=== PATIENT | male | born 1950 | race Caucasian/White ===

== ENCOUNTER 2016-10-19 09:51 | Inpatient (IN) | payer BC ==
[~2016-10-19] VITALS: Ht 177.8 cm; Wt 113.2 kg
[2016-10-19] VITALS (10 sets, daily range): BP systolic 123–149; BP diastolic 77–93
[2016-10-19] MEDS ORDERED: 0.9 % SODIUM CHLORIDE 10 ML DISP.SYRIN. IV PRN (10:00)
--- NOTE | 2016-10-19 10:06 | EKG ---
[facility] [address] [place] [address] Test Date: 2016-10-19 Test Time: 09:52:40 Pat Name: JED KINGSLEY Department: Room: Gender: M Traffic Representative: : 1950 Requested By: RAMIRO HANKS Order Number: [id number] Reading MD: Billy Fried Measurements Intervals [place] Rate: 77 P: 90 AR: 152 QRS: 14 QRSD: 100 T: -20 QT: 386 QTc: 439 Interpretive Statements SINUS RHYTHM ATRIAL PREMATURE COMPLEX(ES) R-S TRANSITION ZONE IN V LEADS DISPLACED TO THE RIGHT INCOMPLETE RIGHT BUNDLE BRANCH BLOCK QRS(T) CONTOUR ABNORMALITY CONSIDER ANTEROLATERAL MYOCARDIAL DAMAGE ST & T ABNORMALITY, CONSIDER INFERIOR ISCHEMIA OR LEFT VENTRICULAR STRAIN RI6.01 Unconfirmed report No previous ECG available for comparison Electronically Signed On 10-19-2016 11:10:21 CDT by Billy Fried
[2016-10-19] MEDS ORDERED: IV NORMAL SALINE 1000ML BAG 1,000 ML IV SCH ×2 (10:15→11:30)
[2016-10-19 10:18] LABS: BASO # 0.1 x10^3/uL (0.0-0.2); BASO % 1 % (0-3); EOS % 2 % (0-3); HEMATOCRIT 48.4 % (39.0-53.0); LYMPH # 2.7 x10^3/uL (1.0-4.8); LYMPH % 29 % (24-48); MEAN CORPUSCULAR HEMOGLOBIN 29 pg (25-35); MEAN CORPUSCULAR HGB CONC 35 g/dL (31-37); MEAN CORPUSCULAR VOLUME 83 fL (79-100); MONO % 7 % (0-9); NEUT % 61 % (31-73); PLATELET COUNT 179 x10^3/uL (140-400); RED BLOOD COUNT 5.85 x10^6/uL (4.30-5.70); RED CELL DISTRIBUTION WIDTH 14.9 % (11.5-14.5); WHITE BLOOD COUNT 9.2 x10^3/uL (4.0-11.0)
[2016-10-19] MEDS: fentaNYL PF VIAL 100 MCG/2 ML VIAL IV PRN ×2 (10:18→10:57)
--- NOTE | 2016-10-19 10:27 | PHYS DOC ---
Past Medical History Past Medical History: CAD, High Cholesterol, Heart Disease, Hypertension Past Surgical History: Other Additional Past Surgical Histo: 6 cardiac stents. Alcohol Use: None Drug Use: None Adult General Chief Complaint Chief Complaint: CHEST PAIN-CARDIAC NATURE HPI HPI Is a pleasant 65-year-old male with history of hypertension, hyperlipidemia and heart disease that required the placement of 6 cardiac stents. He is actually an acute cardiac event when a stent became occluded acutely after became exposed. Patient has been under the care of Dr. Bryan Calle over the [facility] for his cardiac disease since 2005. Today he was out in the yard exerting himself distributing mulch in the yard when he began having chest pain center versus chest described as pressure and squeezing and made him very lightheaded dizzy and diaphoretic. Chest pain is about a 9 of 10 with exertion became less with rest. The really dispensed EMS to the scene found the patient diaphoretic complaining of 7 of 10 chest pain on scene they provided him 324 mg of by mouth aspirin and 2 sublingual nitros and 4 mg of morphine. He felt markedly better on the route at arrival chest pain about 3-4- 10 the diaphoresis and completely resolved. Patient admits to being very anxious. Short of breath with chest pain that does not radiate to his neck or back or shoulder like his prior events. He denies any change in medications, denies any recent travel outside the [place], denies any history of DVT lower extremity swelling or pain. Patient denies any recent URI symptoms cough or any nose congestion or other complaints. He is presently only mildly nauseous. He denies any back pain, headache, tingling or numbness in the visit extremities problems speaking or other concerns. Chest pain was increased with exertion better with rest. Differential diagnosis for chest pain: Pericarditis, myocarditis, endocarditis, pneumothorax, pneumonia, aortic dissection, esophageal spasm, esophagitis, peptic ulcer disease, acute coronary syndrome, mediastinitis, Boerhaave syndrome , musculoskeletal chest wall pain, costochondritis, intercostal strain, rib fracture, pulmonary contusion, pneumonitis, pleural effusion, pericardial effusion, pericardial tamponode, and pleurisy be considered upon this admission. We will complete EKG, CBC, chest x-ray, appropriate lab work to include magnesium level lipase level cardiac enzymes and appropriate admission to the hospital for high risk chest pain. History: Highly suspicious 2 points moderately suspicious 1. slightly suspicious 0 point EKG: ST segment depression 2. nonspecific repolarization disturbance 1. normal 0 point Age: Greater than 65 2 points, 65-45 1., less than 45 years old 0 points Risk factors:> 3 risk factors 2 points, 1-2 risk factors one point, no risk factors 0 point Troponin: > 2 times normal 2 points, 1-2 times normal 1., normal limits 0 point Total score: Score % pts MACE/n MACE Policy 0-3 32% 1.9% 0.05% Discharge 4-6 51% 413/3136 13% 1.3% Observation Risk management 7-10 17% 518/1045 50% 2.8% Observation Treatment, CAG Patient presently has a heart score for without him having a troponin returned. Noel Paz his PCP Dr. Bryan Calle is his primary french polisher. Review of Systems Review of Systems Constitutional: Denies fever or chills [] Eyes: Denies change in visual acuity, redness, or eye pain [] HENT: Denies nasal congestion or sore throat [] Respiratory: He did complain of shortness of breath and chest tightness upon arrival. Cardiovascular: No additional information not addressed in HPI [] GI: Denies abdominal pain no vomiting or diarrhea but does complain of nausea. : Denies dysuria or hematuria [] Musculoskeletal: Denies back pain or joint pain [] Integument: Denies rash or skin lesions [] Neurologic: Denies headache, focal weakness or sensory changes he did complain of feeling generally lightheaded and weak. Endocrine: Denies polyuria or polydipsia [] Current Medications Current Medications Current Medications Medications (Trade) Dose Ordered Sig/Miguel Start Time Stop Time Status Last Admin Dose Admin Fentanyl Citrate (Fentanyl 2ml Vial) 25 mcg PRN Q15MIN PRN 10/19/16 10:00 10/20/16 09:59 10/19/16 10:57 25 MCG Lorazepam (Ativan) 1 mg 1X ONCE 10/19/16 10:15 10/19/16 10:16 DC 10/19/16 10:18 1 MG Sodium Chloride (Normal Saline Flush) 10 ml QSHIFT PRN 10/19/16 10:00 Allergies Allergies Allergies Coded Allergies Type Severity Reaction Last Updated Verified Penicillins Allergy Intermediate 10/19/16 Yes Physical Exam Physical Exam Mildly obese diaphoretic male pale but appropriately responsive. Vital signs evaluated and noted to be hypertensive. Not hypoxic tachypnea or febrile. Constitutional: Well developed, well nourished, no acute distress, non-toxic appearance. [] HENT: Normocephalic, atraumatic, bilateral external ears normal, dry mucous membranes no oral exudates, nose normal. [] Eyes: PERRLA, EOMI, conjunctiva normal, no discharge. [] Neck: Normal range of motion, no tenderness, supple, no stridor. [] Cardiovascular:Heart rate regular rhythm, no murmur [] Lungs & Thorax: Bilateral breath sounds clear to auscultation [] Abdomen: Bowel sounds normal, soft, no tenderness, no masses, no pulsatile masses. [] Skin: Warm, very diaphoretic no erythema, no rash. [] Back: No tenderness, no CVA tenderness. [] Extremities: No tenderness, no cyanosis, no clubbing, ROM intact, no edema. [] Neurologic: Alert and oriented X 3, normal motor function, normal sensory function, no focal deficits noted. [] Psychologic: Patient very anxious but appropriately oriented. Current Patient Data Vital Signs Vital Signs Date Time Temp Pulse Resp B/P (MAP) Pulse Ox O2 Delivery O2 Flow Rate FiO2 10/19/16 10:57 18 10/19/16 10:53 64 166/91 (116) 99 Room Air 10/19/16 09:53 97.5 97.5 Lab Values Laboratory Tests Test 10/19/16 10:03 10/19/16 10:22 White Blood Count 9.2 x10^3/uL (4.0-11.0) Red Blood Count 5.85 x10^6/uL (4.30-5.70) H Hemoglobin 17.0 g/dL (13.0-17.5) Hematocrit 48.4 % (39.0-53.0) Mean Corpuscular Volume 83 fL (79-100) Mean Corpuscular Hemoglobin 29 pg (25-35) Mean Corpuscular Hemoglobin Concent 35 g/dL (31-37) Red Cell Distribution Width 14.9 % (11.5-14.5) H Platelet Count 179 x10^3/uL (140-400) Neutrophils (%) (Auto) 61 % (31-73) Lymphocytes (%) (Auto) 29 % (24-48) Monocytes (%) (Auto) 7 % (0-9) Eosinophils (%) (Auto) 2 % (0-3) Basophils (%) (Auto) 1 % (0-3) Neutrophils # (Auto) 5.6 x10^3uL (1.8-7.7) Lymphocytes # (Auto) 2.7 x10^3/uL (1.0-4.8) Monocytes # (Auto) 0.7 x10^3/uL (0.0-1.1) Eosinophils # (Auto) 0.2 x10^3/uL (0.0-0.7) Basophils # (Auto) 0.1 x10^3/uL (0.0-0.2) Sodium Level 141 mmol/L (136-145) Potassium Level 3.6 mmol/L (3.5-5.1) Chloride Level 107 mmol/L (98-107) Carbon Dioxide Level 25 mmol/L (21-32) Anion Gap 9 (6-14) Blood Urea Nitrogen 30 mg/dL (8-26) H Creatinine 1.2 mg/dL (0.7-1.3) Estimated GFR (Cockcroft-Gault) 61.0 Glucose Level 134 mg/dL (70-99) H Calcium Level 9.9 mg/dL (8.5-10.1) Magnesium Level 1.8 mg/dL (1.8-2.4) Creatine Kinase 92 U/L (39-308) Creatine Kinase MB (Mass) 2.0 ng/mL (0.0-3.6) Creatine Kinase MB Relative Index 2.2 % (0-4) Troponin I Quantitative < 0.017 ng/mL (0.000-0.055) EH-Sim-I-Type Natriuretic Peptide 71 pg/mL (0-124) Lipase 242 U/L (73-393) Thyroid Stimulating Hormone (TSH) 2.271 uIU/mL (0.358-3.74) POC Troponin I 0.01 ng/ml (<0.08) Laboratory Tests 10/19/16 10:03 Laboratory Tests 10/19/16 10:03 EKG EKG EKG timed 0 952 10/19/2016 demonstrates sinus rhythm heart rate of 77 there are occasional premature atrial contractions there is a right bundle-branch block is intermediate widened QRS at 100 ms. There is an old Q-wave in the anterior leads of V1. There is also a Q-wave with necessary depressions in lead 3 and aVF. There are clearly no signs of ST segment elevation consistent with an MA but given his history we will repeat his EKG and he is pain-free. Dr. Hanks is the reading physician [] Radiology/Procedures Radiology/Procedures [] [address] [place] [address] IMAGING REPORT Signed PATIENT: JED KINGSLEY ACCOUNT: [id number] : 1950 LOCATION: ER AGE: 65 SEX: M EXAM STATUS: PRE ER ORD. PHYSICIAN: RAMIRO HANKS MD REASON: chest pain PROCEDURE: PORTABLE CHEST 1V Indication acute chest pain. A single view of the chest was obtained. No prior imaging is available. Heart size is at the upper limits of normal. There is no congestive heart failure. A focal infiltrate is not seen in either lung. Significant pleural fluid is not present. There is no pneumothorax. The visualized bony structures appear grossly intact. IMPRESSION: No acute or focal process is seen in the chest DICTATED and SIGNED BY: SON RYAN MD DATE: 10/19/16 1031 CC: RAMIRO HANKS MD ~ Course & Med Decision Making Course & Med Decision Making Pertinent Labs and Imaging studies reviewed. (See chart for details) patient presented with chest pain of unclear etiology but given his history and possible heart score of being moderateDifferential diagnosis for chest pain: Pericarditis, myocarditis, endocarditis, pneumothorax, pneumonia, aortic dissection, esophageal spasm, esophagitis, peptic ulcer disease, acute coronary syndrome, mediastinitis, Boerhaave syndrome, musculoskeletal chest wall pain, costochondritis, intercostal strain, rib fracture, pulmonary contusion, pneumonitis, pleural effusion, pericardial effusion, pericardial tamponode, and pleurisy. Was considered initially upon presentation. Patient's initial troponin by i-STAT was 0.01 and troponin by laboratory work was 0.017 EKGs did not demonstrate any acute coronary heart attack that there was some nonseptic sT -wave depression which is concerning for possible ischemia. Patient was given multiple a medications fluids antiemetics and something for anxiety which did improve his chest pain from it 9- to 0. Upon movement chest pain did return briefly after patient was moved in the bed. Repeat EKG as been ordered. []Panel Flow Machine Operator note internal medicine Panel Flow Machine Operator called at of the service patient initially at 11 AM Consult called back at return call at 1102 Discussed the case I presented and they agreed with admission. Time of acceptance 1102. Patient will be admitted to telemetry for repeat troponins given pain medications antiemetics and fluids and cardiology evaluation. I spent approximately 45-50 minutes working and engaged directly in the patient care providing critical care evaluation this includes but not limited to time spent engaged in work directly related to the individual patients care. I spent time at the bedside, reviewing test results, discussing the case with staff, documenting the medical record and time spent with EMS discussing specific treatment issues when the patient presented and during his evaluation. Dragon Disclaimer Dragon Disclaimer This electronic medical record was generated, in whole or in part, using a voice recognition dictation system. Departure Departure Impression: Primary Impression: Chest pain of uncertain etiology Additional Impressions: Chest pain Hypertension Disposition: 09 ADMITTED INPATIENT Admitting Physician: Santana Molina Condition: GUARDED Problem Qualifiers RAMIRO HANKS MD Oct 19, 2016 10:27
[2016-10-19 10:30] LABS: CALCIUM 9.9 mg/dL (8.5-10.1); CREATININE 1.2 mg/dL (0.7-1.3); POTASSIUM 3.6 mmol/L (3.5-5.1)
[2016-10-19 10:31] LABS: MAGNESIUM 1.8 mg/dL (1.8-2.4)
--- NOTE | 2016-10-19 10:34 | RAD ---
Indication acute chest pain. A single view of the chest was obtained. No prior imaging is available. Heart size is at the upper limits of normal. There is no congestive heart failure. A focal infiltrate is not seen in either lung. Significant pleural fluid is not present. There is no pneumothorax. The visualized bony structures appear grossly intact. IMPRESSION: No acute or focal process is seen in the chest
[2016-10-19] MEDS ORDERED: fentaNYL PF VIAL 100 MCG/2 ML VIAL IV PRN (11:15)
[2016-10-19] MEDS ORDERED: NITROGLYCERIN SUBLINGUAL 0.4 MG BOTTLE OF 25. SL PRN (11:15)
[2016-10-19] MEDS ORDERED: ONDANSETRON PF 4 MG/2 ML VIAL. IV PRN ×2 (11:15→14:30)
--- NOTE | 2016-10-19 13:35 | PDOC2 ---
JILLIAN GONSALEZ WATERPROOF BAG CUTTING MACHINE OPERATOR 10/19/16 1335: CARDIAC CONSULT DATE OF CONSULT Date of Consult DATE: 10/19/16 TIME: 13:28 REASON FOR CONSULT Reason for Consult: Chest pain with a h/o heart disease REFERRING PHYSICIAN Referring Physician: Dr. Orr SOURCE Source: Chart review, Patient HISTORY OF PRESENT ILLNESS HISTORY OF PRESENT ILLNESS This is a 65 yo male, with a history of CAD requiring multiple stents on 3 occasions, who presented with complaints of chest pain. Patient reports working out in the yard this morning carry heavy bag of mulch when he experienced sudden onset of central chest pain. Describes as pressure-like. Associated with diaphoresis, nausea, SOA, and left arm tingling. Reports symptoms are similar to what he has previously experienced with GA. No exacerbating factors. Improved with fentanyl. Presently reports pain is a 2/10. Significant history of CAD. In 2004, had evaluation with both stress test and echo, both of which were reportedly normal. Continued to have chest pain so underwent cardiac cath; required two stents. In 2010, having similar-type pain, heart cath repeated and had 5 additional stents. In March of 2015, had recurrent chest pain. Had v- fib arrest and was coded multiple times. 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 Had angioplasty with subsequent stent placement. Follows closely with Dr. Calle of [facility]. Reports intermittent "funny feeling " in his chest and recent LYNN. Underwent stress test and echocardiogram earlier this month. Has appointment next week for results of those studies. Has been compliant with medical therapy. PAST MEDICAL HISTORY Cardiovascular: CAD (s/p stents in 2014), HTN Pulmonary: No pertinent hx GI: No pertinent hx Heme/Onc: No pertinent hx Hepatobiliary: No pertinent hx Psych: No pertinent hx Rheumatologic: No pertinent hx Infectious disease: No pertinent hx ENT: No pertinent hx Renal/: No pertinent hx Endocrine: No pertinent hx Dermatology: No pertinent hx PAST SURGICAL HISTORY Past Surgical History: Other (coronary stents ) FAMILY HISTORY Family History: Coronary Artery Disease (father ), Hypertension SOCIAL HISTORY Smoke: No ALCOHOL: none Drugs: None Lives: with Family CURRENT MEDICATIONS CURRENT MEDICATIONS Current Medications Medications (Trade) Dose Ordered Sig/Miguel Route PRN Reason Start Time Stop Time Status Last Admin Dose Admin Lorazepam (Ativan) 1 mg 1X ONCE IV 10/19/16 10:15 10/19/16 10:16 DC 10/19/16 10:18 Fentanyl Citrate (Fentanyl 2ml Vial) 25 mcg PRN Q15MIN PRN IV PAIN GREATER THAN 3/10 10/19/16 10:00 10/20/16 09:59 10/19/16 10:57 Sodium Chloride 1,000 ml @ 1,000 mls/hr Q1H IV 10/19/16 10:15 10/19/16 11:14 DC 10/19/16 10:19 ALLERGIES ALLERGIES: Coded Allergies: Penicillins (Verified Allergy, Intermediate, 10/19/16) ROS Review of System 14 point ROS conducted with pertinent positives noted above in HPI. PHYSICAL EXAM General: Alert, Oriented X3, Cooperative, No acute distress HEENT: Mucous membr. moist/pink Lungs: Clear to auscultation, Normal air movement Heart: Regular rate, Normal S1, Normal S2 Abdomen: Soft, No tenderness Extremities: No edema, Normal pulses Skin: No breakdown, No significant lesion Neuro: Normal speech, Sensation intact Psych/Mental Status: Mental status NL, Mood NL VITALS VITALS Vital Signs Date Time Temp Pulse Resp B/P (MAP) Pulse Ox O2 Delivery O2 Flow Rate FiO2 10/19/16 12:15 97.5 70 18 123/87 (99) 97 Room Air 97.5 LABS Lab: Laboratory Tests Test 10/19/16 10:03 10/19/16 10:22 White Blood Count 9.2 x10^3/uL (4.0-11.0) Red Blood Count 5.85 x10^6/uL (4.30-5.70) Hemoglobin 17.0 g/dL (13.0-17.5) Hematocrit 48.4 % (39.0-53.0) Mean Corpuscular Volume 83 fL (79-100) Mean Corpuscular Hemoglobin 29 pg (25-35) Mean Corpuscular Hemoglobin Concent 35 g/dL (31-37) Red Cell Distribution Width 14.9 % (11.5-14.5) Platelet Count 179 x10^3/uL (140-400) Neutrophils (%) (Auto) 61 % (31-73) Lymphocytes (%) (Auto) 29 % (24-48) Monocytes (%) (Auto) 7 % (0-9) Eosinophils (%) (Auto) 2 % (0-3) Basophils (%) (Auto) 1 % (0-3) Neutrophils # (Auto) 5.6 x10^3uL (1.8-7.7) Lymphocytes # (Auto) 2.7 x10^3/uL (1.0-4.8) Monocytes # (Auto) 0.7 x10^3/uL (0.0-1.1) Eosinophils # (Auto) 0.2 x10^3/uL (0.0-0.7) Basophils # (Auto) 0.1 x10^3/uL (0.0-0.2) Sodium Level 141 mmol/L (136-145) Potassium Level 3.6 mmol/L (3.5-5.1) Chloride Level 107 mmol/L (98-107) Carbon Dioxide Level 25 mmol/L (21-32) Anion Gap 9 (6-14) Blood Urea Nitrogen 30 mg/dL (8-26) Creatinine 1.2 mg/dL (0.7-1.3) Estimated GFR (Cockcroft-Gault) 61.0 Glucose Level 134 mg/dL (70-99) Calcium Level 9.9 mg/dL (8.5-10.1) Magnesium Level 1.8 mg/dL (1.8-2.4) Creatine Kinase 92 U/L (39-308) Creatine Kinase MB (Mass) 2.0 ng/mL (0.0-3.6) Creatine Kinase MB Relative Index 2.2 % (0-4) Troponin I Quantitative < 0.017 ng/mL (0.000-0.055) NN-Jph-X-Type Natriuretic Peptide 71 pg/mL (0-124) Lipase 242 U/L (73-393) Thyroid Stimulating Hormone (TSH) 2.271 uIU/mL (0.358-3.74) Bedside Troponin I 0.01 ng/ml (<0.08) ASSESSMENT/PLAN ASSESSMENT/PLAN 1. Chest Pain with typical features 2. CAD with multiple previous coronary stents 3. Hypertension Recommendations Obtain cardiac records from [facility] Keep NPO for now. Trend CE. Check lipids. ASA administered in ED Given anginal symptoms and significant cardiac history and risk factors, recommend cardiac cath for further evaluation. 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 R/b/a discussed with patient and and are agreeable. Consider nitro gtt if CP returns Problems: HANNAH ARAUJO MD 10/19/16 1501: CARDIAC CONSULT ALLERGIES ALLERGIES: Coded Allergies: Penicillins (Verified Allergy, Intermediate, 10/19/16) ASSESSMENT/PLAN ASSESSMENT/PLAN Patient seen and examined. Agree with above nurse practitioner note. 65-year-old male with multiple prior coronary stents presenting with features of chest pain concerning for unstable angina. Normal cardiac exam. EKG is unremarkable. Labs do not reveal any acute ischemia. Pain control at this time and consider initiation of heparin drip and expedited catheterization the next 12-24 hours, sooner if symptoms and labs necessitate. Problems: JILLIAN GONSALEZ APRN Oct 19, 2016 13:35 HANNAH ARAUJO MD Oct 19, 2016 15:01
[2016-10-19] MEDS ORDERED: ASPI-482 PO (14:28)
[2016-10-19] MEDS ORDERED: DOXA4TAB3 PO (14:28)
[2016-10-19] MEDS ORDERED: CLOP75TA PO (14:28)
[2016-10-19] MEDS ORDERED: MULT-208 PO (14:28)
[2016-10-19] MEDS ORDERED: hydrALAZINE 20 MG/ML VIAL. IVP PRN (14:30)
[2016-10-19] MEDS ORDERED: DOCUSATE SODIUM 100 MG CAPSULE. PO PRN (14:30)
[2016-10-19] MEDS ORDERED: ACETAMINOPHEN 325 MG TABLET. PO PRN (14:30)
[2016-10-19] MEDS ORDERED: MORPHINE SULFATE 2 MG/ML DISP.SYRIN. IV PRN (14:30)
[2016-10-19] MEDS ORDERED: traMADol 50 MG TABLET PO PRN (14:30)
--- NOTE | 2016-10-19 14:37 | PDOC1 ---
History and Physical Date of Admission Date of Admission 10/19/16 Identification/Chief Complaint Chief Complaint CHEST pain Problems: Source Source: Chart review, Patient History of Present Illness History of Present Illness 65yo M, with h/o CAD post PCI , 5-6 stents, last time [place] was 2014, was sent by EMS for chest pain. He said he saw his own card 2 weeks ago , did MPI neg. He was doing ok since last week, feels mild chest uncomfortable, but severe chest pain today when ambulate up and down the hill of the yard mowing, pressure like, substernal, no radiation. He also had diaphoresis, nausea, sob with the chest pain. He took ASA, nitro which helped. and fentanyl iv in ER helped the pain. Still feel mild chest pressure pain. denies recent fever, chills, sob, cough , N/V. compliant with meds. Past Medical History Cardiovascular: CAD (s/p stents in 2014), HTN Past Surgical History Past Surgical History: No pertinent history Family History Family History: Heart Disease Social History Smoke: No ALCOHOL: none Drugs: None Current Problem List Problem List Problems Medical Problems: (1) Chest pain Status: Acute (2) Chest pain of uncertain etiology Status: Acute (3) Hypertension Status: Acute Current Medications Current Medications Current Medications Medications (Trade) Dose Ordered Sig/Miguel Start Time Stop Time Status Last Admin Dose Admin Fentanyl Citrate (Fentanyl 2ml Vial) 50 mcg PRN Q1HR PRN 10/19/16 11:15 10/20/16 11:14 Lorazepam (Ativan) 1 mg 1X ONCE 10/19/16 10:15 10/19/16 10:16 DC 10/19/16 10:18 1 MG Nitroglycerin (Nitrostat) 0.4 mg PRN Q5MIN PRN 10/19/16 11:15 10/20/16 11:14 Ondansetron HCl (Zofran) 4 mg PRN Q8HRS PRN 10/19/16 11:15 10/20/16 11:14 Sodium Chloride 1,000 ml @ 100 mls/hr Q10H 10/19/16 11:30 10/20/16 11:29 Sodium Chloride (Normal Saline Flush) 10 ml QSHIFT PRN 10/19/16 10:00 Allergies Allergies Allergies Coded Allergies Type Severity Reaction Last Updated Verified Penicillins Allergy Intermediate 10/19/16 Yes ROS Review of System CONSTITUTIONAL: No fever or chills EYES: No recent changes SKIN: No rash or itching CARDIOVASCULAR: No chest pain, syncope, palpitations, or edema RESPIRATORY: No SOB or cough GASTROINTESTINAL: No nausea, vomiting or abdominal pain NEUROLOGICAL: No headaches or weakness ENDOCRINE: No cold or heat intolerance GENITOURINARY: No urgency or frequency of urination MUSCULOSKELETAL: No back pain or joint pain LYMPHATICS: No enlarged lymph nodes PSYCHIATRIC: No anxiety or depression Physical Exam Physical Exam GEN.: No apparent distress. Alert and oriented. HEENT: Head is normocephalic, atraumatic NECK: Supple. LUNGS: Clear to auscultation. HEART: RRR, S1, S2 present. Peripheral pulses intact ABDOMEN: Soft, nontender. Positive bowel sounds. EXTREMITIES: Without any cyanosis. NEUROLOGIC: Normal speech, normal tone PSYCHIATRIC: Normal affect, normal mood. SKIN: No ulcerations Vitals Vitals Vital Signs Date Time Temp Pulse Resp B/P (MAP) Pulse Ox O2 Delivery O2 Flow Rate FiO2 10/19/16 12:15 97.5 70 18 123/87 (99) 97 Room Air 97.5 Labs Labs Laboratory Tests Test 10/19/16 10:03 10/19/16 10:22 White Blood Count 9.2 x10^3/uL (4.0-11.0) Red Blood Count 5.85 x10^6/uL (4.30-5.70) Hemoglobin 17.0 g/dL (13.0-17.5) Hematocrit 48.4 % (39.0-53.0) Mean Corpuscular Volume 83 fL (79-100) Mean Corpuscular Hemoglobin 29 pg (25-35) Mean Corpuscular Hemoglobin Concent 35 g/dL (31-37) Red Cell Distribution Width 14.9 % (11.5-14.5) Platelet Count 179 x10^3/uL (140-400) Neutrophils (%) (Auto) 61 % (31-73) Lymphocytes (%) (Auto) 29 % (24-48) Monocytes (%) (Auto) 7 % (0-9) Eosinophils (%) (Auto) 2 % (0-3) Basophils (%) (Auto) 1 % (0-3) Neutrophils # (Auto) 5.6 x10^3uL (1.8-7.7) Lymphocytes # (Auto) 2.7 x10^3/uL (1.0-4.8) Monocytes # (Auto) 0.7 x10^3/uL (0.0-1.1) Eosinophils # (Auto) 0.2 x10^3/uL (0.0-0.7) Basophils # (Auto) 0.1 x10^3/uL (0.0-0.2) Sodium Level 141 mmol/L (136-145) Potassium Level 3.6 mmol/L (3.5-5.1) Chloride Level 107 mmol/L (98-107) Carbon Dioxide Level 25 mmol/L (21-32) Anion Gap 9 (6-14) Blood Urea Nitrogen 30 mg/dL (8-26) Creatinine 1.2 mg/dL (0.7-1.3) Estimated GFR (Cockcroft-Gault) 61.0 Glucose Level 134 mg/dL (70-99) Calcium Level 9.9 mg/dL (8.5-10.1) Magnesium Level 1.8 mg/dL (1.8-2.4) Creatine Kinase 92 U/L (39-308) Creatine Kinase MB (Mass) 2.0 ng/mL (0.0-3.6) Creatine Kinase MB Relative Index 2.2 % (0-4) Troponin I Quantitative < 0.017 ng/mL (0.000-0.055) IK-Hux-J-Type Natriuretic Peptide 71 pg/mL (0-124) Lipase 242 U/L (73-393) Thyroid Stimulating Hormone (TSH) 2.271 uIU/mL (0.358-3.74) Bedside Troponin I 0.01 ng/ml (<0.08) Laboratory Tests Test 10/19/16 10:03 10/19/16 10:22 White Blood Count 9.2 x10^3/uL (4.0-11.0) Red Blood Count 5.85 x10^6/uL (4.30-5.70) Hemoglobin 17.0 g/dL (13.0-17.5) Hematocrit 48.4 % (39.0-53.0) Mean Corpuscular Volume 83 fL (79-100) Mean Corpuscular Hemoglobin 29 pg (25-35) Mean Corpuscular Hemoglobin Concent 35 g/dL (31-37) Red Cell Distribution Width 14.9 % (11.5-14.5) Platelet Count 179 x10^3/uL (140-400) Neutrophils (%) (Auto) 61 % (31-73) Lymphocytes (%) (Auto) 29 % (24-48) Monocytes (%) (Auto) 7 % (0-9) Eosinophils (%) (Auto) 2 % (0-3) Basophils (%) (Auto) 1 % (0-3) Neutrophils # (Auto) 5.6 x10^3uL (1.8-7.7) Lymphocytes # (Auto) 2.7 x10^3/uL (1.0-4.8) Monocytes # (Auto) 0.7 x10^3/uL (0.0-1.1) Eosinophils # (Auto) 0.2 x10^3/uL (0.0-0.7) Basophils # (Auto) 0.1 x10^3/uL (0.0-0.2) Sodium Level 141 mmol/L (136-145) Potassium Level 3.6 mmol/L (3.5-5.1) Chloride Level 107 mmol/L (98-107) Carbon Dioxide Level 25 mmol/L (21-32) Anion Gap 9 (6-14) Blood Urea Nitrogen 30 mg/dL (8-26) Creatinine 1.2 mg/dL (0.7-1.3) Estimated GFR (Cockcroft-Gault) 61.0 Glucose Level 134 mg/dL (70-99) Calcium Level 9.9 mg/dL (8.5-10.1) Magnesium Level 1.8 mg/dL (1.8-2.4) Creatine Kinase 92 U/L (39-308) Creatine Kinase MB (Mass) 2.0 ng/mL (0.0-3.6) Creatine Kinase MB Relative Index 2.2 % (0-4) Troponin I Quantitative < 0.017 ng/mL (0.000-0.055) ZK-Jsn-P-Type Natriuretic Peptide 71 pg/mL (0-124) Lipase 242 U/L (73-393) Thyroid Stimulating Hormone (TSH) 2.271 uIU/mL (0.358-3.74) Bedside Troponin I 0.01 ng/ml (<0.08) VTE Prophylaxis Ordered VTE Prophylaxis Devices: Yes VTE Pharmacological Prophylaxi: Yes Assessment/Plan Assessment/Plan . chest pain, need to rule out unstable angina h/o CAD with PCI stents htn obesity bmi 36 plan: card consult, recent MPI neg, may need cath if pain not improve or EKG or CE change Cycle CE NEED TO verify home meds dvt ppx check lipid panel. ANNY KYLE MD Oct 19, 2016 14:37
[2016-10-19] MEDS: ASPIRIN ENTERIC COATED 81 MG TABLET.DR. PO SCH (15:00)
[2016-10-19] MEDS: DOXAZOSIN MESYLATE 4 MG TABLET. PO SCH ×2 (15:00→21:13)
[2016-10-19] MEDS ORDERED: CLOPIDOGREL BISULFATE 75 MG TABLET PO SCH (15:00)
[2016-10-19] MEDS ORDERED: ENOXAPARIN 40 MG/0.4 ML SYRINGE. SQ SCH (15:00)
--- NOTE | 2016-10-19 15:46 | EKG ---
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1950 Requested By: RAMIRO HANKS Order Number: [id number] Reading MD: Billy Fried Measurements Intervals [place] Rate: 67 P: 34 NH: 168 QRS: 20 QRSD: 100 T: -15 QT: 412 QTc: 438 Interpretive Statements SINUS RHYTHM ATRIAL PREMATURE COMPLEX(ES) R-S TRANSITION ZONE IN V LEADS DISPLACED TO THE RIGHT INCOMPLETE RIGHT BUNDLE BRANCH BLOCK QRS(T) CONTOUR ABNORMALITY CONSIDER ANTEROLATERAL MYOCARDIAL DAMAGE T ABNORMALITY IN INFERIOR LEADS RI6.01 Unconfirmed report Compared to ECG 10/19/2016 09:52:40 Possible ischemia no longer present T-wave abnormality still present Electronically Signed On 10-21-2016 11:13:08 CDT by Billy Fried
[2016-10-19] MEDS ORDERED: CHOL500016 PO (16:00)
[2016-10-19] MEDS ORDERED: OMEG1CAP6 PO (16:00)
[2016-10-19] MEDS ORDERED: HEPARIN 25,000UTS/500ML PREMIX 500 ML IV PRN (16:15)
[2016-10-19] MEDS ORDERED: HEPARIN for IV BOLUS 10,000 UNIT/10 ML VIAL. IV PRN (16:15)
[2016-10-19] MEDS ORDERED: LIDOCAINE 2% 20 ML VIAL. ONE (16:51)
[2016-10-19] MEDS ORDERED: IOHEXOL 300 MG/ML 100ML VIAL. ONE (16:52)
[2016-10-19] MEDS ORDERED: HEPARIN for IV BOLUS 10,000 UNIT/10 ML VIAL. ONE (16:53)
[2016-10-19] MEDS ORDERED: VERAPAMIL 5 MG/2 ML VIAL. ONE (16:53)
[2016-10-19] MEDS ORDERED: MIDAZOLAM HCL/PF 2 MG/2 ML VIAL. ONE ×2 (16:53→17:12)
[2016-10-19] MEDS ORDERED: fentaNYL PF VIAL 100 MCG/2 ML VIAL ONE (16:53)
[2016-10-19] MEDS ORDERED: NITROGLYCERIN 200 MCG/2 ML SYRINGE FOR CATH/VASC LAB. ONE (16:53)
[2016-10-19] MEDS ORDERED: BIVALIRUDIN 250 MG VIAL. IV ONE ×2 (17:06→17:10)
[2016-10-19] MEDS ORDERED: NITROGLYCERIN 200 MCG/2 ML SYRINGE FOR CATH/VASC LAB. IART ONE (17:15)
[2016-10-19] MEDS ORDERED: MIDAZOLAM HCL/PF 2 MG/2 ML VIAL. IV ONE (17:15)
[2016-10-19] MEDS ORDERED: HEPARIN for IV BOLUS 10,000 UNIT/10 ML VIAL. IART ONE (17:15)
[2016-10-19] MEDS ORDERED: fentaNYL PF VIAL 100 MCG/2 ML VIAL IV ONE (17:15)
[2016-10-19] MEDS ORDERED: VERAPAMIL 5 MG/2 ML VIAL. IART ONE (17:15)
[2016-10-19] MEDS ORDERED: IOHEXOL 300 MG/ML 100ML VIAL. IART ONE (17:15)
[2016-10-19] MEDS ORDERED: LIDOCAINE 2% 20 ML VIAL. IJ ONE (17:15)
[2016-10-19] MEDS ORDERED: NITROGLYCERIN 200 MCG/2 ML SYRINGE FOR CATH/VASC LAB. ICAR ONE (17:30)
[2016-10-19] MEDS ORDERED: PRASUGREL 10 MG TABLET. PO ONE (17:45)
[2016-10-19] MEDS ORDERED: PRASUGREL 10 MG TABLET. ONE (17:48)
--- NOTE | 2016-10-19 18:11 | CARD ---
APPROVED REPORT Procedure(s) performed: Left Heart Catheterization Right transradial approach PTCA with Stenting To LAD PTCA To OM1 HISTORY The patient is a 65 year-old male with a history of : previous PCI (The PCI date was 05/03/2014). INDICATION The indication(s) include : non-STEMI (>6 hrs to = 12 hrs). CASE TECHNIQUE During this case, Fluoroscopy and low osmolar contrast were used for imaging. PROCEDURE NARRATIVE The patient was brought urgently to the cardiac catheterization lab. A timeout was performed confirm ing the patient's name, date of , procedure, and site of procedure. All necessary personnel wer e wearing the appropriate protective equipment and radiation monitor devices. After explaining the r isks and benefits of the procedure and alternatives, informed consent was obtained. (See nursing note s for medications administered). The right wrist was sterilely prepped and draped in the usual fashi on. The right wrist was infiltrated with 1 mL of 2% lidocaine for subcutaneous anesthesia. A 6 Fren ch Terumo glide sheath was inserted into the right radial artery without difficulty. Right and left coronary angiography was performed using a 6Fr TIG 4.0 catheter. HEMODYNAMICS: LVEDP 30 mm Hg No gradient on LV to aortic pullback. LEFT VENTRICULOGRAM: EF 60% Anterobasal: Normal. Anterolateral: Normal Apical: Normal Diaphragmatic: Normal Posterobasal: Normal *No mitral regurgitation. CORONARY ANGIOGRAPHY: LM is a large caliber vessel with normal angiographic appearance. LAD is a large caliber vessel a patent proximal stent, a mid 80% eccentric stenosis and mild diffuse irregularities throughout the distal vessel. D1 is a moderate caliber vessel with proximal to mid moderate disease of up to 40% and mild ectasia. LCx is a moderate caliber non-dominant vessel patent overlapping proximal to mid stents extending int o OM2. OM1 is a small to moderate caliber vessel with an ostial 95% stenosis related to previous stent place ment and plaque shift. RCA is a large caliber dominant vessel with patent proximal and distal stents. The remainder of the v essel has mild diffuse irregularities of up to 30% and mild ectasia. RPDA and RPL are moderate caliber vessels with normal angiographic appearance. INTERVENTIONAL TECHNIQUE: PCI OF LAD Based upon the presenting symptoms, elevated biomarkers and angiographic findings, an intervention wa s performed on the LAD. Bivalirudin was used for anticoagulation. Through a 6F EBU 3.5 guide catheter , a 0.014'' Prowater wire was directed through the lesion to the distal LAD. The lesion was then carolyn oplastied with a Trek 3.0/12 mm balloon and then stented with a 3.5/15 Xience ASHLEY at 14 lewis. Post-PCI angiography revealed excellent stent expansion with GLADYS 3 flow in the vessel and no evidence of eddi de or wire related complications. INTERVENTIONAL TECHNIQUE: PCI OF THE OM1 Due to high grade disease noted in the OM1 from jailing due to prior overlapping stents in the main L Cx, an intervention was also performed on this vessel. A Prowater wire was directed to the distal OM1 and next, the lesion was dilated with a 2.0/12 mm balloon at 14 lewis. Post angioplasty, there was sti ll residual 80% stenosis. In order to avoid disruption of the main branch stents, further interventio n was deferred in favor of medical therapy. Left ventricular end diastolic pressure was obtained with a pigtail catheter and pullback was performed after left ventriculography. All catheter exchanges a nd advancements were performed over a guidewire. At case completion the right radial sheath was williams yisel and a Terumo radial band was applied with 13 ml of air. The patient tolerated the procedure well and there were no immediate complications. Conclusion 1. Three vessel coronary artery disease with patent stents in the RCA, LAD and LCx. 2. Denovo lesion in the mid LAD treated with a 3.5/15 Xience ASHLEY 3. OM1 ostial stenosis from jailing due to previously LCx stents treated with 2.0 mm balloon. Recommendations ASA 81mg daily Prasugrel 10mg daily High dose statin therapy if tolerated. If patient has persistent chest pain, could then consider bifurcation stenting of the OM1. Deferred f or now to avoid disruption of the main branch stents.
--- NOTE | 2016-10-20 02:35 | ACF ---
Admission Forms Criteria CHEST PAIN Clinical Indications for Admission to Inpatient Care (Place 'X' for any and all applicable criteria): Admission is indicated for chest pain and ANY ONE of the following(1)(2)(3)(4)(5 ): [ ]I. Angina with acute coronary syndrome (Also use Myocardial Infarction or Angina guideline) [ ]II. Hemodynamic instability [ ]III. Angina needing acute intervention as indicated by ALL of the following( 11)(12): [ ]a) Unstable angina is present as indicated by angina that is ANY ONE of the following: [ ]i) New onset [ ]ii) Nocturnal [ ]iii) Prolonged at rest [ ]iv) Progressive [ ]b) Angina warrants acute intervention as indicated by ANY ONE of the following: [ ]i) Recurrent angina (e.g, not responding as previously to treatment) [ ]ii) Angina at rest or with low-level activities despite initial medical therapy [ ]iii) New or presumably new ST-segment depression on ECG [ ]iv) Signs or symptoms of heart failure (eg, dyspnea, pulmonary edema) [ ]v) New or worsening mitral regurgitation [ ]vi) Hemodynamic instability [ ]vii) Dangerous arrhythmia (eg, sustained ventricular tachycardia) [ ]viii) History of percutaneous coronary intervention within 6 months [ ]ix) History of coronary artery bypass graft surgery [ ]x) GLADYS risk score of 2 or greater[A] [ ]xi) History of Diabetes(14) [ ]xii) High-risk cardiac ischemia findings on noninvasive testing (e.g, echocardiogram, treadmill testing, nuclear scan) [ ]xiii) Chronic renal insufficiency (ie, estimated GFR less than 60 mL/min/1.732m) [ ]xiv) Left ventricular ejection fraction less than 40% [ ]IV. Evidence of MT (eg, cardiac biomarkers positive, ST-segment elevation on ECG) also use Myocardial Infarction Criteria Form. [ ]V. Pulmonary edema [ ]. Respiratory distress [ ]VII. Chest pain indicative of serious diagnosis other than coronary artery disease (eg, aortic dissection) [X ]VIII. Contraindications and/or Inappropriate clinical situations for Observational Care in patients with Chest Pain, when ANY ONE of the following is required: [ ]a) Patient with risk factor for pulmonary embolism, acute coronary syndrome and myocardial infarction (18) [ ]b) Patient with Pulmonary embolism require an average LOS of 4.3 days, therefore emergency department observation management is inappropriate 18,23 [ ]c) Painful condition/s in the elderly, have the highest rate of recidivism after emergency department observation management (10.8%) 20,21,22 [X ]d) Elevated cardiac biomarker requires intensive and exhaustive care (19) [ X]IX. General contraindications and/or Inappropriate clinical situations for Observational Care in patients with Chest Pain, when ANY ONE of the following is required: [ X]a) Prediction of prolongation of LOS based on ANY ONE of the following may be considered as a contraindication for observational care 2, 3, 4, 5, 6, 7, 8, 9, 10, 11 [ ]i) Age > 65 yrs. [X ]ii) Patient arriving by ambulance [X ]iii) Patient with high acuity [ ]iv) Patient requiring vital sign monitoring [ ]v) Patient on IV medication [ ]b) Systolic blood pressures 180mmHg 3,12 [ ]c) Patient with altered mental status including delirium and other alteration of consciousness, (3) [ ]d) Patient whose discharge disposition will be to a long term home or rehabilitation home should not be managed in Emergency Department Observation Unit. CMS rule requires 3 days hospital stay before such placement. 3,13 [ ]e) Patient with failure to thrive due to broad array of etiologies 3,16,17 [ ]f) Inability to ambulate 3,14 Extended stay beyond goal length of stay may be needed for (1)(28): [ ]a) Specific condition diagnosed after evaluation (eg, pulmonary embolism, aortic dissection) [ ]b) Unstable angina [ ]c) Continued suspicion of acute coronary syndrome with inability to complete needed cardiac evaluation (eg, patient clinically unable to undergo stress testing) [ ]d) Myocardial infarction (Contents from ANGINA and CHEST PAIN clinical indications for admission to inpatient care have been integrated in this form) The original [employer] content created by [employer] has been revised. The portions of the content which have been revised are identified through the use of italic text or in bold, and [facility] has neither reviewed nor approved the modified material. All other unmodified content is copyright [employer]. Please see references footnoted in the original [facility] edition 2016 Admission Criteria Met?: Yes CAROLINE HANEY Oct 20, 2016 02:35
[2016-10-20 03:45] VITALS: BP 144/89
[2016-10-20 04:33] LABS: BASO % 0 % (0-3); EOS % 2 % (0-3); HEMATOCRIT 43.2 % (39.0-53.0); HEMOGLOBIN 14.8 g/dL (13.0-17.5); LYMPH # 2.3 x10^3/uL (1.0-4.8); LYMPH % 22 % (24-48); MEAN CORPUSCULAR HEMOGLOBIN 29 pg (25-35); MEAN CORPUSCULAR HGB CONC 34 g/dL (31-37); MEAN CORPUSCULAR VOLUME 84 fL (79-100); MONO % 6 % (0-9); NEUT % 69 % (31-73); PLATELET COUNT 154 x10^3/uL (140-400); RED BLOOD COUNT 5.12 x10^6/uL (4.30-5.70); RED CELL DISTRIBUTION WIDTH 14.9 % (11.5-14.5); WHITE BLOOD COUNT 10.3 x10^3/uL (4.0-11.0)
[2016-10-20 04:50] LABS: CHOLESTEROL/HDL RATIO 3.6
[2016-10-20 04:53] LABS: CALCIUM 8.4 mg/dL (8.5-10.1); GFR 75.2; POTASSIUM 3.7 mmol/L (3.5-5.1)
[2016-10-20 07:00] VITALS: BP 136/82
[2016-10-20] MEDS: DOXAZOSIN MESYLATE 4 MG TABLET. PO SCH (08:22)
[2016-10-20] MEDS: ASPIRIN ENTERIC COATED 81 MG TABLET.DR. PO SCH (08:23)
--- NOTE | 2016-10-20 08:26 | EKG ---
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 : 1950 Requested By: ANNY KYLE Order Number: [id number] Reading MD: Billy Fried Measurements Intervals [place] Rate: 80 P: 28 MT: 172 QRS: 22 QRSD: 100 T: -4 QT: 384 QTc: 447 Interpretive Statements SINUS RHYTHM COMPLEX(ES) WITH ABERRANT INTRAVENTRICULAR CONDUCTION ATRIAL PREMATURE COMPLEX(ES), BIGEMINY R-S TRANSITION ZONE IN V LEADS DISPLACED TO THE RIGHT INCOMPLETE RIGHT BUNDLE BRANCH BLOCK QRS(T) CONTOUR ABNORMALITY CONSIDER ANTEROLATERAL MYOCARDIAL DAMAGE ABNORMAL ECG RI6.01 Compared to ECG 10/19/2016 09:52:40 T-wave abnormality no longer present Possible ischemia no longer present Electronically Signed On 10-21-2016 11:17:04 CDT by Billy Fried
[2016-10-20] MEDS ORDERED: PRASUGREL 10 MG TABLET. PO SCH (09:00)
[2016-10-20] MEDS ORDERED: MULTIVITAMIN with MINERAL TABLET. PO SCH (09:00)
--- NOTE | 2016-10-20 09:38 | PDOC ---
PROGRESS NOTES Chief Complaint Chief Complaint CC: Chest pain A/P 1. Three vessel coronary artery disease with patent stents in the RCA, LAD and LCx. 2. Denovo lesion in the mid LAD treated with a Xience ASHLEY 3. 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 h/o CAD with PCI stents 5. HTN 6. Obesity bmi 36 Plan chest pain free, stable, possible DC today, Vitals Vitals Vital Signs Date Time Temp Pulse Resp B/P (MAP) Pulse Ox O2 Delivery O2 Flow Rate FiO2 10/20/16 08:22 64 136/82 10/20/16 07:40 Room Air 10/20/16 07:00 97.5 16 97 97.5 Physical Exam General: Alert, Oriented X3, Cooperative, No acute distress Heart: Regular rate, Normal S1, Normal S2 Lungs: Clear Abdomen: Normal bowel sounds, Soft, No tenderness Extremities: No edema, Normal pulses Skin: No breakdown, No significant lesion Labs LABS Laboratory Tests Test 10/19/16 10:03 10/19/16 10:22 10/19/16 15:15 10/19/16 23:00 White Blood Count 9.2 x10^3/uL (4.0-11.0) Red Blood Count 5.85 x10^6/uL (4.30-5.70) Hemoglobin 17.0 g/dL (13.0-17.5) Hematocrit 48.4 % (39.0-53.0) Mean Corpuscular Volume 83 fL (79-100) Mean Corpuscular Hemoglobin 29 pg (25-35) Mean Corpuscular Hemoglobin Concent 35 g/dL (31-37) Red Cell Distribution Width 14.9 % (11.5-14.5) Platelet Count 179 x10^3/uL (140-400) Neutrophils (%) (Auto) 61 % (31-73) Lymphocytes (%) (Auto) 29 % (24-48) Monocytes (%) (Auto) 7 % (0-9) Eosinophils (%) (Auto) 2 % (0-3) Basophils (%) (Auto) 1 % (0-3) Neutrophils # (Auto) 5.6 x10^3uL (1.8-7.7) Lymphocytes # (Auto) 2.7 x10^3/uL (1.0-4.8) Monocytes # (Auto) 0.7 x10^3/uL (0.0-1.1) Eosinophils # (Auto) 0.2 x10^3/uL (0.0-0.7) Basophils # (Auto) 0.1 x10^3/uL (0.0-0.2) Sodium Level 141 mmol/L (136-145) Potassium Level 3.6 mmol/L (3.5-5.1) Chloride Level 107 mmol/L (98-107) Carbon Dioxide Level 25 mmol/L (21-32) Anion Gap 9 (6-14) Blood Urea Nitrogen 30 mg/dL (8-26) Creatinine 1.2 mg/dL (0.7-1.3) Estimated GFR (Cockcroft-Gault) 61.0 Glucose Level 134 mg/dL (70-99) Calcium Level 9.9 mg/dL (8.5-10.1) Magnesium Level 1.8 mg/dL (1.8-2.4) Creatine Kinase 92 U/L (39-308) Creatine Kinase MB (Mass) 2.0 ng/mL (0.0-3.6) Creatine Kinase MB Relative Index 2.2 % (0-4) Troponin I Quantitative < 0.017 ng/mL (0.000-0.055) 8.379 ng/mL (0.000-0.055) 37.272 ng/mL (0.000-0.055) VQ-Bkx-P-Type Natriuretic Peptide 71 pg/mL (0-124) Lipase 242 U/L (73-393) Thyroid Stimulating Hormone (TSH) 2.271 uIU/mL (0.358-3.74) Bedside Troponin I 0.01 ng/ml (<0.08) Test 10/20/16 03:45 White Blood Count 10.3 x10^3/uL (4.0-11.0) Red Blood Count 5.12 x10^6/uL (4.30-5.70) Hemoglobin 14.8 g/dL (13.0-17.5) Hematocrit 43.2 % (39.0-53.0) Mean Corpuscular Volume 84 fL (79-100) Mean Corpuscular Hemoglobin 29 pg (25-35) Mean Corpuscular Hemoglobin Concent 34 g/dL (31-37) Red Cell Distribution Width 14.9 % (11.5-14.5) Platelet Count 154 x10^3/uL (140-400) Neutrophils (%) (Auto) 69 % (31-73) Lymphocytes (%) (Auto) 22 % (24-48) Monocytes (%) (Auto) 6 % (0-9) Eosinophils (%) (Auto) 2 % (0-3) Basophils (%) (Auto) 0 % (0-3) Neutrophils # (Auto) 7.1 x10^3uL (1.8-7.7) Lymphocytes # (Auto) 2.3 x10^3/uL (1.0-4.8) Monocytes # (Auto) 0.7 x10^3/uL (0.0-1.1) Eosinophils # (Auto) 0.2 x10^3/uL (0.0-0.7) Basophils # (Auto) 0.0 x10^3/uL (0.0-0.2) Sodium Level 142 mmol/L (136-145) Potassium Level 3.7 mmol/L (3.5-5.1) Chloride Level 107 mmol/L (98-107) Carbon Dioxide Level 27 mmol/L (21-32) Anion Gap 8 (6-14) Blood Urea Nitrogen 20 mg/dL (8-26) Creatinine 1.0 mg/dL (0.7-1.3) Estimated GFR (Cockcroft-Gault) 75.2 Glucose Level 102 mg/dL (70-99) Calcium Level 8.4 mg/dL (8.5-10.1) Triglycerides Level 94 mg/dL (0-150) Cholesterol Level 185 mg/dL (0-200) LDL Cholesterol, Calculated 114 mg/dL (0-100) VLDL Cholesterol, Calculated 19 mg/dL (0-40) Non-HDL Cholesterol Calculated 133 mg/dL (0-129) HDL Cholesterol 52 mg/dL (40-60) Cholesterol/HDL Ratio 3.6 Assessment and Plan Assessmemt and Plan Problems Medical Problems: (1) Chest pain Status: Acute (2) Chest pain of uncertain etiology Status: Acute (3) Hypertension Status: Acute Problems: Comment Review of Relevant I have reviewed the following items gloria (where applicable) has been applied. Labs Laboratory Tests Test 6/19/17 10:03 10/19/16 10:22 10/19/16 15:15 10/19/16 23:00 White Blood Count 9.2 x10^3/uL (4.0-11.0) Red Blood Count 5.85 x10^6/uL (4.30-5.70) Hemoglobin 17.0 g/dL (13.0-17.5) Hematocrit 48.4 % (39.0-53.0) Mean Corpuscular Volume 83 fL (79-100) Mean Corpuscular Hemoglobin 29 pg (25-35) Mean Corpuscular Hemoglobin Concent 35 g/dL (31-37) Red Cell Distribution Width 14.9 % (11.5-14.5) Platelet Count 179 x10^3/uL (140-400) Neutrophils (%) (Auto) 61 % (31-73) Lymphocytes (%) (Auto) 29 % (24-48) Monocytes (%) (Auto) 7 % (0-9) Eosinophils (%) (Auto) 2 % (0-3) Basophils (%) (Auto) 1 % (0-3) Neutrophils # (Auto) 5.6 x10^3uL (1.8-7.7) Lymphocytes # (Auto) 2.7 x10^3/uL (1.0-4.8) Monocytes # (Auto) 0.7 x10^3/uL (0.0-1.1) Eosinophils # (Auto) 0.2 x10^3/uL (0.0-0.7) Basophils # (Auto) 0.1 x10^3/uL (0.0-0.2) Sodium Level 141 mmol/L (136-145) Potassium Level 3.6 mmol/L (3.5-5.1) Chloride Level 107 mmol/L (98-107) Carbon Dioxide Level 25 mmol/L (21-32) Anion Gap 9 (6-14) Blood Urea Nitrogen 30 mg/dL (8-26) Creatinine 1.2 mg/dL (0.7-1.3) Estimated GFR (Cockcroft-Gault) 61.0 Glucose Level 134 mg/dL (70-99) Calcium Level 9.9 mg/dL (8.5-10.1) Magnesium Level 1.8 mg/dL (1.8-2.4) Creatine Kinase 92 U/L (39-308) Creatine Kinase MB (Mass) 2.0 ng/mL (0.0-3.6) Creatine Kinase MB Relative Index 2.2 % (0-4) Troponin I Quantitative < 0.017 ng/mL (0.000-0.055) 8.379 ng/mL (0.000-0.055) 37.272 ng/mL (0.000-0.055) ZS-Voe-F-Type Natriuretic Peptide 71 pg/mL (0-124) Lipase 242 U/L (73-393) Thyroid Stimulating Hormone (TSH) 2.271 uIU/mL (0.358-3.74) Bedside Troponin I 0.01 ng/ml (<0.08) Test 10/20/16 03:45 White Blood Count 10.3 x10^3/uL (4.0-11.0) Red Blood Count 5.12 x10^6/uL (4.30-5.70) Hemoglobin 14.8 g/dL (13.0-17.5) Hematocrit 43.2 % (39.0-53.0) Mean Corpuscular Volume 84 fL (79-100) Mean Corpuscular Hemoglobin 29 pg (25-35) Mean Corpuscular Hemoglobin Concent 34 g/dL (31-37) Red Cell Distribution Width 14.9 % (11.5-14.5) Platelet Count 154 x10^3/uL (140-400) Neutrophils (%) (Auto) 69 % (31-73) Lymphocytes (%) (Auto) 22 % (24-48) Monocytes (%) (Auto) 6 % (0-9) Eosinophils (%) (Auto) 2 % (0-3) Basophils (%) (Auto) 0 % (0-3) Neutrophils # (Auto) 7.1 x10^3uL (1.8-7.7) Lymphocytes # (Auto) 2.3 x10^3/uL (1.0-4.8) Monocytes # (Auto) 0.7 x10^3/uL (0.0-1.1) Eosinophils # (Auto) 0.2 x10^3/uL (0.0-0.7) Basophils # (Auto) 0.0 x10^3/uL (0.0-0.2) Sodium Level 142 mmol/L (136-145) Potassium Level 3.7 mmol/L (3.5-5.1) Chloride Level 107 mmol/L (98-107) Carbon Dioxide Level 27 mmol/L (21-32) Anion Gap 8 (6-14) Blood Urea Nitrogen 20 mg/dL (8-26) Creatinine 1.0 mg/dL (0.7-1.3) Estimated GFR (Cockcroft-Gault) 75.2 Glucose Level 102 mg/dL (70-99) Calcium Level 8.4 mg/dL (8.5-10.1) Triglycerides Level 94 mg/dL (0-150) Cholesterol Level 185 mg/dL (0-200) LDL Cholesterol, Calculated 114 mg/dL (0-100) VLDL Cholesterol, Calculated 19 mg/dL (0-40) Non-HDL Cholesterol Calculated 133 mg/dL (0-129) HDL Cholesterol 52 mg/dL (40-60) Cholesterol/HDL Ratio 3.6 Laboratory Tests Test 10/19/16 10:03 10/19/16 10:22 10/19/16 15:15 10/19/16 23:00 White Blood Count 9.2 x10^3/uL (4.0-11.0) Red Blood Count 5.85 x10^6/uL (4.30-5.70) Hemoglobin 17.0 g/dL (13.0-17.5) Hematocrit 48.4 % (39.0-53.0) Mean Corpuscular Volume 83 fL (79-100) Mean Corpuscular Hemoglobin 29 pg (25-35) Mean Corpuscular Hemoglobin Concent 35 g/dL (31-37) Red Cell Distribution Width 14.9 % (11.5-14.5) Platelet Count 179 x10^3/uL (140-400) Neutrophils (%) (Auto) 61 % (31-73) Lymphocytes (%) (Auto) 29 % (24-48) Monocytes (%) (Auto) 7 % (0-9) Eosinophils (%) (Auto) 2 % (0-3) Basophils (%) (Auto) 1 % (0-3) Neutrophils # (Auto) 5.6 x10^3uL (1.8-7.7) Lymphocytes # (Auto) 2.7 x10^3/uL (1.0-4.8) Monocytes # (Auto) 0.7 x10^3/uL (0.0-1.1) Eosinophils # (Auto) 0.2 x10^3/uL (0.0-0.7) Basophils # (Auto) 0.1 x10^3/uL (0.0-0.2) Sodium Level 141 mmol/L (136-145) Potassium Level 3.6 mmol/L (3.5-5.1) Chloride Level 107 mmol/L (98-107) Carbon Dioxide Level 25 mmol/L (21-32) Anion Gap 9 (6-14) Blood Urea Nitrogen 30 mg/dL (8-26) Creatinine 1.2 mg/dL (0.7-1.3) Estimated GFR (Cockcroft-Gault) 61.0 Glucose Level 134 mg/dL (70-99) Calcium Level 9.9 mg/dL (8.5-10.1) Magnesium Level 1.8 mg/dL (1.8-2.4) Creatine Kinase 92 U/L (39-308) Creatine Kinase MB (Mass) 2.0 ng/mL (0.0-3.6) Creatine Kinase MB Relative Index 2.2 % (0-4) Troponin I Quantitative < 0.017 ng/mL (0.000-0.055) 8.379 ng/mL (0.000-0.055) 37.272 ng/mL (0.000-0.055) UK-Cmj-K-Type Natriuretic Peptide 71 pg/mL (0-124) Lipase 242 U/L (73-393) Thyroid Stimulating Hormone (TSH) 2.271 uIU/mL (0.358-3.74) Bedside Troponin I 0.01 ng/ml (<0.08) Test 10/20/16 03:45 White Blood Count 10.3 x10^3/uL (4.0-11.0) Red Blood Count 5.12 x10^6/uL (4.30-5.70) Hemoglobin 14.8 g/dL (13.0-17.5) Hematocrit 43.2 % (39.0-53.0) Mean Corpuscular Volume 84 fL (79-100) Mean Corpuscular Hemoglobin 29 pg (25-35) Mean Corpuscular Hemoglobin Concent 34 g/dL (31-37) Red Cell Distribution Width 14.9 % (11.5-14.5) Platelet Count 154 x10^3/uL (140-400) Neutrophils (%) (Auto) 69 % (31-73) Lymphocytes (%) (Auto) 22 % (24-48) Monocytes (%) (Auto) 6 % (0-9) Eosinophils (%) (Auto) 2 % (0-3) Basophils (%) (Auto) 0 % (0-3) Neutrophils # (Auto) 7.1 x10^3uL (1.8-7.7) Lymphocytes # (Auto) 2.3 x10^3/uL (1.0-4.8) Monocytes # (Auto) 0.7 x10^3/uL (0.0-1.1) Eosinophils # (Auto) 0.2 x10^3/uL (0.0-0.7) Basophils # (Auto) 0.0 x10^3/uL (0.0-0.2) Sodium Level 142 mmol/L (136-145) Potassium Level 3.7 mmol/L (3.5-5.1) Chloride Level 107 mmol/L (98-107) Carbon Dioxide Level 27 mmol/L (21-32) Anion Gap 8 (6-14) Blood Urea Nitrogen 20 mg/dL (8-26) Creatinine 1.0 mg/dL (0.7-1.3) Estimated GFR (Cockcroft-Gault) 75.2 Glucose Level 102 mg/dL (70-99) Calcium Level 8.4 mg/dL (8.5-10.1) Triglycerides Level 94 mg/dL (0-150) Cholesterol Level 185 mg/dL (0-200) LDL Cholesterol, Calculated 114 mg/dL (0-100) VLDL Cholesterol, Calculated 19 mg/dL (0-40) Non-HDL Cholesterol Calculated 133 mg/dL (0-129) HDL Cholesterol 52 mg/dL (40-60) Cholesterol/HDL Ratio 3.6 Medications Current Medications Lorazepam (Ativan) 1 mg 1X ONCE IV Last administered on 10/19/16t 10:18; Start 10/19/16 at 10:15; Stop 10/19/16 at 10:16; Status DC Fentanyl Citrate (Fentanyl 2ml Vial) 25 mcg PRN Q15MIN PRN IV PAIN GREATER THAN 3/10 Last administered on 10/19/16 10:57; Start 10/19/16 at 10:00; Stop at 09:59 Sodium Chloride 1,000 ml @ 1,000 mls/hr Q1H IV Last administered on 10/19/16 10:19; Start 10/19/16 at 10:15; Stop 10/19/16 at 11:14; Status DC Sodium Chloride (Normal Saline Flush) 10 ml QSHIFT PRN IV AFTER MEDS AND BLOOD DRAWS; Start 10/19/16 at 10:00 Ondansetron HCl (Zofran) 4 mg PRN Q8HRS PRN IV NAUSEA/VOMITING; Start 10/19/16 at 11:15; Stop 10/20/16 at 11:14 Fentanyl Citrate (Fentanyl 2ml Vial) 50 mcg PRN Q1HR PRN IV PAIN; Start at 11:15; Stop 10/20/16 at 11:14 Sodium Chloride 1,000 ml @ 100 mls/hr Q10H IV ; Start 10/19/16 at 11:30; Stop 10/19/16 at 14:54; Status DC Nitroglycerin (Nitrostat) 0.4 mg PRN Q5MIN PRN SL CHEST PAIN; Start 10/19/16 at 11:15; Stop 10/20/16 at 11:14 Aspirin (Ecotrin) 81 mg DAILY PO Last administered on 10/20/16 08:23; Start at 15:00 Clopidogrel Bisulfate (Plavix) 75 mg DAILY PO ; Start 10/19/16 at 15:00; Stop at 08:34; Status DC Doxazosin Mesylate (Cardura) 4 mg BID PO Last administered on 10/20/16 08:22; Start 10/19/16 at 15:00 Multivitamins (Thera M Plus) 1 tab DAILY PO Last administered on 10/20/16 08: 22; Start 10/20/16 at 09:00 Acetaminophen (Tylenol) 650 mg PRN Q6HRS PRN PO FEVER; Start 10/19/16 at 14:30 Ondansetron HCl (Zofran) 4 mg PRN Q6HRS PRN IV NAUSEA/VOMITING; Start 10/19/16 at 14:30 Morphine Sulfate 2 mg PRN Q2HR PRN IV PAIN Last administered on 10/20/16 01:38 ; Start 10/19/16 at 14:30 Tramadol HCl (Ultram) 50 mg PRN Q6HRS PRN PO PAIN; Start 10/19/16 at 14:30 Hydralazine HCl (Apresoline) 10 mg PRN Q4HRS PRN IVP ELEVATED BP, SEE COMMENTS ; Start 10/19/16 at 14:30 Docusate Sodium (Colace) 100 mg PRN DAILY PRN PO CONSTIPATION; Start 10/19/16 at 14:30 Enoxaparin Sodium (Lovenox 40mg Syringe) 40 mg Q24H SQ ; Start 10/19/16 at 15:00 ; Stop 10/19/16 at 16:18; Status DC Heparin Sodium/ Dextrose 500 ml @ 0 mls/hr CONT PRN IV SEE I/O RECORD Last administered on 10/19/16 16:34; Start 10/19/16 at 16:15 Heparin Sodium (Porcine) (Heparin Sodium) 2,800 unit PRN Q6HRS PRN IV FOR UFH LEVEL LESS THAN 0.2; Start 10/19/16 at 16:15 Lidocaine HCl 20 ml STK-MED ONCE .ROUTE ; Start 10/19/16 at 16:51; Stop at 16:52; Status DC Heparin Sodium/ Sodium Chloride 1,000 ml @ As Directed STK-MED ONCE .ROUTE ; Start 10/19/16 at 16:51; Stop 10/19/16 at 16:52; Status DC Iohexol (Omnipaque 300 Mg/ml) 100 ml STK-MED ONCE .ROUTE ; Start 10/19/16 at 16: 52; Stop 10/19/16 at 16:53; Status DC Nitroglycerin (Nitroglycerin) 200 mcg STK-MED ONCE .ROUTE ; Start 10/19/16 at 16 :53; Stop 10/19/16 at 16:54; Status DC Verapamil HCl (Verapamil) 5 mg STK-MED ONCE .ROUTE ; Start 10/19/16 at 16:53; Stop 10/19/16 at 16:54; Status DC Midazolam HCl (Versed) 2 mg STK-MED ONCE .ROUTE ; Start 10/19/16 at 16:53; Stop 10/19/16 at 16:54; Status DC Fentanyl Citrate (Fentanyl 2ml Vial) 100 mcg STK-MED ONCE .ROUTE ; Start at 16:53; Stop 10/19/16 at 16:54; Status DC Heparin Sodium (Porcine) (Heparin Sodium) 10,000 unit STK-MED ONCE .ROUTE ; Start 10/19/16 at 16:53; Stop 10/19/16 at 16:54; Status DC Bivalirudin (Angiomax) 250 mg STK-MED ONCE IV ; Start 10/19/16 at 17:06; Stop at 17:07; Status DC Midazolam HCl (Versed) 2 mg STK-MED ONCE .ROUTE ; Start 10/19/16 at 17:12; Stop 10/19/16 at 17:13; Status DC Nitroglycerin (Nitroglycerin) 200 mcg 1X ONCE IART Last administered on 17:47; Start 10/19/16 at 17:15; Stop 10/19/16 at 17:29; Status DC Verapamil HCl (Verapamil) 2.5 mg 1X ONCE IART Last administered on 10/19/16 17:47; Start 10/19/16 at 17:15; Stop 10/19/16 at 17:29; Status DC Heparin Sodium (Porcine) (Heparin Sodium) 2,500 unit 1X ONCE IART Last administered on 10/19/16 17:49; Start 10/19/16 at 17:15; Stop 10/19/16 at 17:29 ; Status DC Heparin Sodium/ Sodium Chloride 1,000 unit 1X ONCE IART Last administered on 17:46; Start 10/19/16 at 17:15; Stop 10/19/16 at 17:29; Status DC Heparin Sodium/ Sodium Chloride 1,000 unit 1X ONCE IART Last administered on 17:46; Start 10/19/16 at 17:15; Stop 10/19/16 at 17:29; Status DC Midazolam HCl (Versed) 2 mg 1X ONCE IV Last administered on 10/19/16 17:45; Start 10/19/16 at 17:15; Stop 10/19/16 at 17:29; Status DC Fentanyl Citrate (Fentanyl 2ml Vial) 100 mcg 1X ONCE IV Last administered on 17:46; Start 10/19/16 at 17:15; Stop 10/19/16 at 17:29; Status DC Iohexol (Omnipaque 300 Mg/ml) 100 ml 1X ONCE IART Last administered on 17:45; Start 10/19/16 at 17:15; Stop 10/19/16 at 17:29; Status DC Bivalirudin (Angiomax) 250 mg 1X ONCE IV Last administered on 10/19/16 17:46 ; Start 10/19/16 at 17:10; Stop 10/19/16 at 17:29; Status DC Lidocaine HCl 20 ml 1X ONCE IJ Last administered on 10/19/16 17:45; Start at 17:15; Stop 10/19/16 at 17:29; Status DC Nitroglycerin (Nitroglycerin) 200 mcg 1X ONCE ICAR Last administered on 17:47; Start 10/19/16 at 17:30; Stop 10/19/16 at 17:31; Status DC Prasugrel (Effient) 60 mg 1X ONCE PO Last administered on 10/19/16 17:48; Start 10/19/16 at 17:45; Stop 10/19/16 at 17:46; Status DC Prasugrel (Effient) 10 mg STK-MED ONCE .ROUTE ; Start 10/19/16 at 17:48; Stop at 17:49; Status DC Prasugrel (Effient) 10 mg DAILYWBKFT PO Last administered on 10/20/16 08:54; Start 10/20/16 at 09:00 Active Scripts Active Reported Vitamin D3 (Cholecalciferol (Vitamin D3)) 5,000 Unit Tablet 5,000 Unit PO BIDWMEALS Fish Oil 1,000 Mg Capsule (Rescue-3 Fatty Acids/Fish Oil) 1 Each Capsule 1 Each PO BID Multi-Day Vitamins (Multivitamin) 1 Each Tablet 1 Tab PO DAILY Doxazosin Mesylate 4 Mg Tablet 4 Mg PO BID Aspir 81 (Aspirin) 81 Mg Tablet. 81 Mg PO DAILY Clopidogrel (Clopidogrel Bisulfate) 75 Mg Tablet 75 Mg PO DAILY Vitals/I & O Vital Sign - Last 24 Hours 10/19/16 10/19/16 10/19/16 6/19/17 09:53 10:23 10:53 10:57 Temp 97.5 97.5 Pulse 82 66 64 Resp 22 24 20 18 B/P (MAP) 150/84 (106) 152/89 (110) 166/91 (116) Pulse Ox 99 100 99 O2 Delivery Room Air Room Air Room Air 10/19/16 10/19/16 10/19/16 10/19/16 11:23 12:15 13:30 15:53 Temp 97.5 97.9 97.5 97.9 Pulse 63 70 82 Resp 18 18 20 B/P (MAP) 164/82 (109) 123/87 (99) 133/93 (106) Pulse Ox 97 97 98 O2 Delivery Room Air Room Air Room Air Room Air 10/19/16 10/19/16 10/19/16 10/19/16 17:43 17:46 17:47 18:16 Pulse 72 77 Resp 18 19 B/P (MAP) 145/91 Pulse Ox 98 98 O2 Delivery Room Air Room Air Room Air 10/19/16 10/19/16 10/19/16 10/19/16 19:00 19:30 19:45 20:30 Temp 98.1 98.1 Pulse 92 74 79 70 Resp 20 B/P (MAP) 139/77 (97) 142/81 (101) 145/83 (103) 132/79 (96) Pulse Ox 97 O2 Delivery Room Air 10/19/16 10/19/16 10/19/16 10/19/16 20:30 21:13 21:30 22:30 Pulse 60 62 60 B/P (MAP) 145/83 149/85 (106) 136/85 (102) O2 Delivery Room Air 10/19/16 10/20/16 10/20/16 10/20/16 23:30 03:45 07:00 07:40 Temp 98.0 97.5 98.0 97.5 Pulse 63 68 69 Resp 12 16 B/P (MAP) 145/86 (105) 144/89 (107) 136/82 (100) Pulse Ox 98 97 O2 Delivery Room Air Room Air Room Air 10/20/16 08:22 Pulse 64 B/P (MAP) 136/82 Intake and Output 10/19/16 10/19/16 10/20/16 15:00 23:00 07:00 Intake Total 120 ml 300 ml Output Total 850 ml Balance 120 ml -550 ml YON MCKOY MD Oct 20, 2016 09:38
[2016-10-20] MEDS ORDERED: ATOR20TA PO (10:17)
[2016-10-20] MEDS ORDERED: ASPI-612 PO (10:17)
[2016-10-20] MEDS ORDERED: PRAS10TA9 PO (10:17)
[2016-10-20 11:00] VITALS: BP 138/82
[2016-10-20] MEDS ORDERED: METOPROLOL TART IMMED RELEASE 25 MG TABLET. PO SCH (11:00)
[2016-10-20] MEDS ORDERED: METO25TA4 PO (11:28)
--- NOTE | 2016-10-20 11:28 | PDOC ---
JILLIAN GONSALEZ [employer] BANKING REPRESENTATIVE 10/20/16 1128: CARDIO Progress Notes Date and Time Date of Service 10/20/16 Time of Evaluation 1100 Subjective Subjective: No Chest Pain, No shortness of breath, No Palpitations Vitals Vitals Vital Signs Date Time Temp Pulse Resp B/P (MAP) Pulse Ox O2 Delivery O2 Flow Rate FiO2 10/20/16 08:22 64 136/82 10/20/16 07:40 Room Air 10/20/16 07:00 97.5 16 97 97.5 Weight Weight [ ] Input and Output Intake and Output Intake and Output 10/20/16 07:00 Intake Total 420 ml Output Total 850 ml Balance -430 ml Intake Oral 420 ml Output Urine Total 850 ml # Voids 3 Laboratory Labs Laboratory Tests Test 10/19/16 15:15 10/19/16 23:00 10/20/16 03:45 Troponin I Quantitative 8.379 ng/mL (0.000-0.055) 37.272 ng/mL (0.000-0.055) White Blood Count 10.3 x10^3/uL (4.0-11.0) Red Blood Count 5.12 x10^6/uL (4.30-5.70) Hemoglobin 14.8 g/dL (13.0-17.5) Hematocrit 43.2 % (39.0-53.0) Mean Corpuscular Volume 84 fL (79-100) Mean Corpuscular Hemoglobin 29 pg (25-35) Mean Corpuscular Hemoglobin Concent 34 g/dL (31-37) Red Cell Distribution Width 14.9 % (11.5-14.5) Platelet Count 154 x10^3/uL (140-400) Neutrophils (%) (Auto) 69 % (31-73) Lymphocytes (%) (Auto) 22 % (24-48) Monocytes (%) (Auto) 6 % (0-9) Eosinophils (%) (Auto) 2 % (0-3) Basophils (%) (Auto) 0 % (0-3) Neutrophils # (Auto) 7.1 x10^3uL (1.8-7.7) Lymphocytes # (Auto) 2.3 x10^3/uL (1.0-4.8) Monocytes # (Auto) 0.7 x10^3/uL (0.0-1.1) Eosinophils # (Auto) 0.2 x10^3/uL (0.0-0.7) Basophils # (Auto) 0.0 x10^3/uL (0.0-0.2) Sodium Level 142 mmol/L (136-145) Potassium Level 3.7 mmol/L (3.5-5.1) Chloride Level 107 mmol/L (98-107) Carbon Dioxide Level 27 mmol/L (21-32) Anion Gap 8 (6-14) Blood Urea Nitrogen 20 mg/dL (8-26) Creatinine 1.0 mg/dL (0.7-1.3) Estimated GFR (Cockcroft-Gault) 75.2 Glucose Level 102 mg/dL (70-99) Calcium Level 8.4 mg/dL (8.5-10.1) Triglycerides Level 94 mg/dL (0-150) Cholesterol Level 185 mg/dL (0-200) LDL Cholesterol, Calculated 114 mg/dL (0-100) VLDL Cholesterol, Calculated 19 mg/dL (0-40) Non-HDL Cholesterol Calculated 133 mg/dL (0-129) HDL Cholesterol 52 mg/dL (40-60) Cholesterol/HDL Ratio 3.6 Physical Exam HEENT: Neck Supple W Full Motion Chest: Symmetric LUNGS: Clear to Auscultation Heart: S1S2, RRR Abdomen: Soft N/T Extremities: 2+ Dorsalis Pedis, No Edema, Other (right radial arteriotomy site soft, clean, and dry with neurovascular status intact) Neurology: alert, oriented, follow commands Plan Plan 1. 3-vessel CAD: s/p ASHLEY to LAD 2. Sustained ventricular tachycardia; >30 seconds 3. Hypertension 4. Hyperlipidemia Recommendations DAPT with ASA and Effient Add statin therapy Cardiac rehab referral BB for suppression of ventricular arrhythmias LifeVest at discharge for primary prevention of SCD Patient to follow up in our office with Dr. Wesley in 4 weeks as scheduled Records obtain from [facility] - Echo 10/10/16; LV with normal function EF 65%. No regional WMA. HANNAH WESLEY MD 10/20/16 6401: CARDIO Progress Notes Plan Plan Pt. seen and examined. Agree with above NEWS CLERK note. No acute events overnight. Denies any chest pain this morning. Had episodes of sustained wide complex tachycardia lasting 45 seconds last night , likely reperfusion arrhythmia but cannot rule out vtach. PVc's overnight. Normal cardiac exam today. Meds reviewed. PVC's decreased after b-lisa added. Discussed pros/cons of lifevest. Given prior history of cardiac arrest, albeit in the setting of stent thrombosis, would favor aggressive measures to prevent SCD in light of arrhythmias overnight, referred for lifevest. Will refer to cardiac rehab. Discussed reasons for high potent DAPT therapy with and patient, they are agreeable. Stop plavix. 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 JILLIAN GONSALEZ APRN Oct 20, 2016 11:28 HANNAH WESLEY MD Oct 20, 2016 22:49
[2016-10-20 15:00] VITALS: BP 145/74
[2016-10-20] MEDS ORDERED: ATORVASTATIN CALCIUM 20 MG TABLET PO SCH (21:00)
== END 2016-10-20 18:55 | disposition home or self-care (01) | DRG 247 ==
LOC: ER 09:51 → 2 NORTH 11:00
PROVIDERS: ADMIT Internal Medicine; ATTEND Internal Medicine
PROC: 4A023N8 Measurement of Cardiac Sampling and Pressure, Bilateral, Percutaneous Approach (ICD-10-PCS; principal; 2016-10-19)
PROC: 027034Z Dilation of Coronary Artery, One Artery with Drug-eluting Intraluminal Device, Percutaneous Approach (ICD-10-PCS; 2016-10-19)
PROC: 02703ZZ Dilation of Coronary Artery, One Artery, Percutaneous Approach (ICD-10-PCS; 2016-10-19)
PROC: B2151ZZ Fluoroscopy of Left Heart using Low Osmolar Contrast (ICD-10-PCS; 2016-10-19)
DX: T82.855A Stenosis of coronary artery stent, initial encounter (principal); R07.9 Chest pain, unspecified; E78.5 Hyperlipidemia, unspecified; E78.00 Pure hypercholesterolemia, unspecified; E66.9 Obesity, unspecified; I10 Essential (primary) hypertension; I25.10 Atherosclerotic heart disease of native coronary artery without angina pectoris; Z82.49 Family history of ischemic heart disease and other diseases of the circulatory system; Z68.36 Body mass index [BMI] 36.0-36.9, adult; I25.2 Old myocardial infarction; Z95.5 Presence of coronary angioplasty implant and graft
CPT/HCPCS: 36415; 71010; 80048; 80061; 82553; 83690; 83735; 83880; 84443; 84484; 85027; 92920; 92928; 93005; 93458; 96361; 96374; 96375; 96376; C1725; C1769; C1874; C1887; C1892; J0583; J2060; J2250; J2270; J2405; J3010; J3490; J7030; Q9967; 99291-25

== ENCOUNTER → 2018-02-28 | Outpatient (CLI) | payer MEDICARE, OTHER ==
[~2018-02-28] MED LIST: ASPI-482 PO; ASPI-612 PO; ATOR20TA PO; CHOL500016 PO; CLOP75TA PO; DOCU-109 PO; DOXA4TAB3 PO; GARL500C PO; METH-38 PO; METO25TA4 PO; MULT-208 PO; NAPR220C4 PO; OMEG1CAP6 PO; OXYC-411 PO; PRAS10TA9 PO
--- NOTE | 2018-02-28 13:23 | EKG ---
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
[2018-02-28 13:47] LABS: BASO # 0.1 x10^3/uL (0.0-0.2); BASO % 1 % (0-3); EOS # 0.1 x10^3/uL (0.0-0.7); EOS % 1 % (0-3); HEMATOCRIT 46.7 % (39.0-53.0); HEMOGLOBIN 16.5 g/dL (13.0-17.5); LYMPH # 1.8 x10^3/uL (1.0-4.8); LYMPH % 18 % (24-48); MEAN CORPUSCULAR HEMOGLOBIN 30 pg (25-35); MEAN CORPUSCULAR HGB CONC 35 g/dL (31-37); MEAN CORPUSCULAR VOLUME 84 fL (79-100); MONO # 0.6 x10^3/uL (0.0-1.1); MONO % 6 % (0-9); NEUT # 7.1 x10^3uL (1.8-7.7); NEUT % 74 % (31-73); PLATELET COUNT 172 x10^3/uL (140-400); RED BLOOD COUNT 5.57 x10^6/uL (4.30-5.70); RED CELL DISTRIBUTION WIDTH 13.9 % (11.5-14.5); WHITE BLOOD COUNT 9.7 x10^3/uL (4.0-11.0)
[2018-02-28 14:06] LABS: ALBUMIN 3.9 g/dL (3.4-5.0); ALBUMIN/GLOBULIN RATIO 1.2 (1.0-1.7); CALCIUM 9.3 mg/dL (8.5-10.1); CREATININE 0.9 mg/dL (0.7-1.3); GFR 84.4; TOTAL BILIRUBIN 0.5 mg/dL (0.2-1.0); TOTAL PROTEIN 7.1 g/dL (6.4-8.2)
--- NOTE | 2018-03-03 14:43 | HP ---
ADMIT DATE: DATE OF SURGERY: 03/03/2018 The patient is a pleasant DICTATION ENDS HERE VINCENZO KEARNEY MD DR: JED/michael JOB#: [id number] / [id number]
== END ==
LOC: SURGPAT 12:48
PROVIDERS: ATTEND Neurological Surgery
DX: Z01.818 Encounter for other preprocedural examination (principal); M51.36 Other intervertebral disc degeneration, lumbar region; M71.38 Other bursal cyst, other site; I45.19 Other right bundle-branch block
CPT/HCPCS: 36415; 80053; 85025; 87641; 93005

== ENCOUNTER → 2018-03-04 | Day surgery (SDC) | payer MEDICARE, OTHER ==
[~2018-03-04] VITALS: Ht 177.8 cm; Wt 116.1 kg
[~2018-03-04] MED LIST changes: +BACITRACIN 50,000 UNIT in IV NORMAL SALINE 1000ML BAG 1,000 ML IRR ONE; +BUPIVAC MPF-EPI 0.5%-1:200000 30 ML VIAL. ONE; +DESFLURANE > 120 MINUTES IH ONE; +DEXAMETHASONE SOD PHOS 20 MG/5 ML VIAL. ONE; +GELATIN SPONGE SIZE 100. ONE; +GLYCOPYRROLATE 1 MG/5 ML VIAL. ONE; +IV RINGERS,LACTATED 1000ML 1,000 ML IV SCH; +KETOROLAC 30 MG/ML INJ FOR OR. INJ ONE; +KETOROLAC 60 MG/2 ML INJ FOR OR. ONE; +LIDOCAINE 1% PF 2 ML VIAL. ID PRN; +MIDAZOLAM HCL/PF 2 MG/2 ML VIAL. ONE; +NEOSTIGMINE METHYLSULFATE 5 MG/5 ML SYRINGE. ONE; +ONDANSETRON PF 4 MG/2 ML VIAL. IV PRN; +ONDANSETRON PF 4 MG/2 ML VIAL. ONE; +PHENYLEPHRINE 10 MG/ML VIAL. ONE; +PROCHLORPERAZINE 10 MG/2 ML VIAL. IV PRN; +PROPOFOL 20 ML IV ONE; +PROPOFOL 50 ML IV ONE; +REMIFENTANIL 2 MG VIAL. IV ONE; +ROCURONIUM 50 MG/5 ML VIAL. ONE; +VANCOMYCIN 1GM IVPB FOR OMNI 250 ML IV PRN; +ePHEDrine PF IN SALINE 50 MG/5 ML DISP.SYRIN IV ONE; +fentaNYL PF VIAL 100 MCG/2 ML VIAL IV PRN; +fentaNYL PF VIAL 250 MCG/5 ML VIAL ONE; +oxyCODONE/APAP 5/325 1 TAB TABLET PO ONE
--- NOTE | 2018-03-04 08:29 | HP ---
ADMIT DATE: 03/04/2018 HISTORY OF PRESENT ILLNESS: The patient is a pleasant 67-year-old man who about 2 months ago developed problems with low back pain and pain which radiates to his right leg. Most of the pain is in the posterior thigh and lateral thigh and leg. He notes numbness in the right anterior leg. He feels weakness in his right foot. He rates his pain 4/10. Carrying and lifting increases his pain. Heat seems to help. He takes Percocet and a muscle relaxer. Chiropractic treatment was minimally helpful. PAST MEDICAL HISTORY: Headaches, MD, cardiac disease and chest pain. PAST SURGICAL HISTORY: Cardiac catheterization and stents. CURRENT MEDICATIONS: Percocet, muscle relaxer, terbinafine, doxazosin, testosterone, omega 3, vitamin D3, Coenzyme Q10, garlic and magnesium. ALLERGIES: PENICILLIN AND MORPHINE. FAMILY HISTORY: Cancer, heart disease, hypertension and migraine headaches. 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 . Does not smoke. Never drinks alcohol. REVIEW OF SYSTEMS: A 12-point review of systems was performed and is noncontributory except that mentioned above. PHYSICAL EXAMINATION: GENERAL: Alert and pleasant. HEAD: Normocephalic and atraumatic. SKIN: Warm and dry. MUSCULOSKELETAL: Lumbar paraspinal muscle bulk is normal, restricted range of motion of the lumbar spine, moderate tenderness of the lower lumbar spine with palpation, normal range of motion of the lower extremities bilaterally. EXTREMITIES: No clubbing, cyanosis or edema. NEUROLOGIC: Alert and oriented x 3. Strength is 5/5 in the lower extremities except for his right foot with dorsiflexion 1-2/5, sensory was intact to light touch in the lower extremities except for decrease in the anterior lateral leg on the right, reflexes were present and symmetric in the lower extremities, positive straight leg raising on the right and foot drop on the right. IMAGING: I reviewed a lumbar MRI scan. On that study, the principal abnormalities were at L4-L5. There is posterior disc bulging and right paracentral disc herniation. There is significant facet hypertrophy with marked thickened ligamentum flavum and a suggestion of a synovial cyst on the right. There is severe stenosis at this level. ASSESSMENT AND PLAN: The patient has severe lumbar stenosis at L4-L5 with a right foot drop. He should undergo lumbar microdecompressive surgery at this level to decompress the dura and the exiting L5 root. I discussed surgery with him including the technique and the risk as well as the expected postoperative course. He would like to go ahead. We will make the arrangements. VINCENZO KEARNEY MD DR: ARAMIS/michael JOB#: [id number] / [id number] CLAUDIA
--- NOTE | 2018-03-04 13:37 | DISCH ---
DISCHARGE INSTRUCTIONS Condition on Discharge Condition on Discharge: Stable Activity After Discharge Activity Instructions for Disc: Activity as tolerated, Avoid exertion, Other, see below Other activity instructions: no driving for a week Bathing Instructions: Shower-keep dressing dry, No Tub Bath until see Lifting Instructions after Dis: No heavy lifting, No pulling or pushing, Do not lift >10 pounds Driving Instructions after Dis: Do not drive today Diet after Discharge Diet after Discharge: Cardiac Wound Incision Care Wound/Incision Care: Ice to area for comfort Other wound/incision instructi: may remove dressing in 48 hrs if dry then may shower, no soaking Checks after Discharge Checks after discharge: Check blood press - daily Contacting the after DC Call your doctor for: Concerns you may have Follow-Up Follow up with: Dr. Kearney's nurse in 2 weeks [phone] VINCENZO KEARNEY MD Mar 04, 2018 13:37
[2018-03-04 15:06] VITALS: BP 172/83
--- NOTE | 2018-03-07 12:45 | OP ---
DATE OF SURGERY: 03/04/2018 PREOPERATIVE DIAGNOSES: 1. Severe lumbar spinal stenosis, L4-L5. 2. Sequestered disc fragment versus synovial cyst, L4-L5, right with right lumbar radiculopathy. POSTOPERATIVE DIAGNOSES: 1. Severe lumbar spinal stenosis, L4-L5. 2. Sequestered disc fragment with radiculopathy, right L4-L5. OPERATION PERFORMED: 1. Right direct laminectomy, L4-L5. 2. Lumbar microdiscectomy with removal of sequestered disc fragment and decompression of the dura and nerve root. The operation was done with EMG monitoring, SSEP monitoring, fluoroscopy and microscopic dissection. SURGEON: Miguelangel Kearney M.D. MACHINE QUILT STUFFER: KODY Sandy, assisted with the surgery. She assisted with the microdiscectomy as well as the closure. OPERATIVE INDICATIONS: The patient is a very pleasant 67-year-old man who developed severe back and right leg pain and was found to have the above-mentioned findings on the imaging studies. He failed to improve with conservative measures and I recommended lumbar microsurgery to decompress the dura and nerve root as well. He understood the surgery and the risks. He understood the technique of the operation and he wished to go ahead. DESCRIPTION OF PROCEDURE: Following general endotracheal anesthesia, the patient was positioned prone on the operating room table and the lumbar region was then prepped and draped in a standard fashion. ELEANOR hose and AV impulse boots were applied for DVT prophylaxis. The microscope was draped. Fluoroscopy was draped and brought into field and monitoring was established. Vancomycin 1 gram was given prior to surgery. Using fluoroscopic guidance, an incision was made over the L4-L5 interspace and dissected down through the skin and subcutaneous tissue. I reflected the paraspinal muscles and placed a [place] micro disc retractor. I brought in the microscope and the remainder of the surgery was done with the microscope using microscopic technique. I burred down a very generous hemilaminotomy and then tilted across the midline and decompressed dorsally across the midline and then worked laterally, performing a very generous partial foraminotomy. I peeled away the very thickened ligamentum flavum. The dura was well seen and was lifted and compressing medially the nerve root, which was related to a large sequestered disc fragment, which was densely scarred to the underlying nerve and dura. I gently worked and freed up the sequestered disc and began to remove it piecemeal and as I worked, the region became very well decompressed. There was considerable scarring and as I worked, the nerve root and the common dural sac became quite free. I entered in the disc space and performed a discectomy with pituitary rongeurs. I explored carefully and assured myself that the root was free and there were no further disc fragments. I was sure that my foraminotomy was very generous and the entire region was very well decompressed. Following the discectomy, then I explored carefully and after being satisfied with excellent hemostasis, for which I used small amounts of bone wax as well as the bipolar cautery, I closed the wound in layers with absorbable sutures and skin was closed with 4-0 subcuticular stitch and the operation went very well. The patient was taken to the recovery room in excellent condition. I was quite pleased with the surgery. MIGUELANGEL KEARNEY MD DR: JED/michael JOB#: [id number] / [id number] CLAUDIA
--- NOTE | 2018-03-10 15:08 | PATHOLOGY ---
[facility] Accession Number: [id number] . 01 Material submitted: . LUMBAR DISC AND DECOMPRESSION . 01 Clinical history: . Severe stenosis, lumbar herniated disc . 02 Diagnosis: Segments of fibrocartilaginous, fibroadipose, and skeletal muscle tissue and bone, lumbar disc and decompression: - Degenerative changes of fibrocartilaginous tissue. LB/03/10/2018 . 02 Comment: There is no evidence of an acute inflammatory process or malignancy. (JPM/db; 03/10/2018) . 02 Electronically signed: . Paul Alejandre MD, Pathologist NPI- [id number] . 01 Gross description: . The specimen is received in formalin, labeled "Roberto Carmona, lumbar disc and decompression", are multiple irregular fragments of guardado-white fibrous and yellow lobulated soft tissue possibly admixed with fragments of bone measuring 3.0 x 2.7 x 1.0 cm in aggregate. Flight Control Tower Operator tissue is submitted in A1 after decalcification. ([facility]; 03/07/2018) [facility] . 02 Pathologist provided ICD-10: M51.36 . 02 CPT . 405568, [id number] Specimen Comment: A courtesy copy of this report has been sent to Specimen Comment: [phone], . Specimen Comment: Report sent to / DR MINOR Specimen Comment: A duplicate report has been generated due to demographic updates. Performed at: 01 [facility] [address], [place] [id number] MD Santos Hayden MD Phone: [phone] Performed at: 02 [facility] [address] [place], [place] [id number] MD Paul Alejandre MD Phone: [phone]
== END | disposition home or self-care (01) ==
LOC: OPS 08:34 → OPSVCIP 08:34 → UNDOADMIN 08:34 → EDSTATUS 10:30
PROVIDERS: ATTEND Neurological Surgery
DX: M51.16 Intervertebral disc disorders with radiculopathy, lumbar region (principal); M48.061 Spinal stenosis, lumbar region without neurogenic claudication; E66.9 Obesity, unspecified; M19.90 Unspecified osteoarthritis, unspecified site; I10 Essential (primary) hypertension; Z79.899 Other long term (current) drug therapy; Z79.82 Long term (current) use of aspirin; Z98.890 Other specified postprocedural states; E78.00 Pure hypercholesterolemia, unspecified; Z95.5 Presence of coronary angioplasty implant and graft; Z86.010 Personal history of colon polyps
CPT/HCPCS: 76000; 88304; 88311; A7015; J1100; J1885; J2250; J2405; J2704; J2710; J3010; J3370; J3490; J7030; J7120; 97530

== ENCOUNTER → 2018-04-04 | Outpatient (CLI) | payer MEDICARE, OTHER ==
[2018-03-04 15:06] VITALS: BP 172/83
[~2018-04-04] MED LIST changes: -BACITRACIN 50,000 UNIT in IV NORMAL SALINE 1000ML BAG 1,000 ML IRR ONE; -BUPIVAC MPF-EPI 0.5%-1:200000 30 ML VIAL. ONE; -DESFLURANE > 120 MINUTES IH ONE; -DEXAMETHASONE SOD PHOS 20 MG/5 ML VIAL. ONE; -GELATIN SPONGE SIZE 100. ONE; -GLYCOPYRROLATE 1 MG/5 ML VIAL. ONE; -IV RINGERS,LACTATED 1000ML 1,000 ML IV SCH; -KETOROLAC 30 MG/ML INJ FOR OR. INJ ONE; -KETOROLAC 60 MG/2 ML INJ FOR OR. ONE; -LIDOCAINE 1% PF 2 ML VIAL. ID PRN; -MIDAZOLAM HCL/PF 2 MG/2 ML VIAL. ONE; -NEOSTIGMINE METHYLSULFATE 5 MG/5 ML SYRINGE. ONE; -ONDANSETRON PF 4 MG/2 ML VIAL. IV PRN; -ONDANSETRON PF 4 MG/2 ML VIAL. ONE; -PHENYLEPHRINE 10 MG/ML VIAL. ONE; -PROCHLORPERAZINE 10 MG/2 ML VIAL. IV PRN; -PROPOFOL 20 ML IV ONE; -PROPOFOL 50 ML IV ONE; -REMIFENTANIL 2 MG VIAL. IV ONE; -ROCURONIUM 50 MG/5 ML VIAL. ONE; -VANCOMYCIN 1GM IVPB FOR OMNI 250 ML IV PRN; -ePHEDrine PF IN SALINE 50 MG/5 ML DISP.SYRIN IV ONE; -fentaNYL PF VIAL 100 MCG/2 ML VIAL IV PRN; -fentaNYL PF VIAL 250 MCG/5 ML VIAL ONE; -oxyCODONE/APAP 5/325 1 TAB TABLET PO ONE
--- NOTE | 2018-04-04 11:11 | CARD ---
MR#: [id number] Date of Study: 04/04/2018 Ordering Physician: HANNAH ARAUJO, Referring Physician: HANNAH ARAUJO, Tech: Amada Coello [facility] APPROVED REPORT EXAM: Two-dimensional and M-mode echocardiogram with Doppler and color Doppler. Other Information Quality : AverageHR: 75bpm Rhythm : Irregular INDICATION CAD 2D DIMENSIONS RVDd2.6 (2.9-3.5cm)Left Atrium(2D)4.0 (1.6-4.0cm) IVSd1.3 (0.7-1.1cm)Aortic Root(2D)3.2 (2.0-3.7cm) LVDd4.9 (3.9-5.9cm)LVOT Diameter2.2 (1.8-2.4cm) PWd1.1 (0.7-1.1cm)LVDs3.3 (2.5-4.0cm) FS (%) 32.5 %SV67.1 ml LVEF(%)60.7 (>50%) M-Mode DIMENSIONS Left Atrium(MM)4.09 (2.5-4.0cm)Aortic Root3.61 (2.2-3.7cm) Aortic Valve AoV Peak Ace.120.7cm/sAoV VTI25.4cm AO Peak GR.5.8mmHgLVOT Peak Ace.81.6cm/s AO Mean GR.3mmHgAVA (VMAX)2.57cm2 FREDERICK (VTI)2.60cm2 Mitral Valve MV E Qwqjrnbm59.0cm/sMV DECEL HRVF576jr MV A Buakexfw586.4cm/sE/A Ratio0.9 MV A Vcmmwbxz483vi Pulmonary Valve PV Peak Nndpvbyr003.3cm/s Tricuspid Valve TR P. Phfzbvfc976kb/sRAP XCBFXNFS4saBw TR Peak Gr.31pzJgDJKD67yhZr LEFT VENTRICLE The left ventricle is normal size. There is mild concentric left ventricular hypertrophy. The left ve ntricular systolic function is normal and the ejection fraction is within normal range. The Ejection Fraction is 55-60%. There is normal LV segmental wall motion. Transmitral Doppler flow pattern is Gra de II-pseudonormal filling dynamics. RIGHT VENTRICLE The right ventricle is normal size. There is normal right ventricular wall thickness. The right ventr icular systolic function is normal. ATRIA The left atrium is mildly dilated. The right atrium is mildly dilated. The interatrial septum is inta ct with no evidence for an atrial septal defect or patent foramen ovale as noted on 2-D or Doppler im aging. AORTIC VALVE The aortic valve is trileaflet. The aortic valve is calcified but opens well. Doppler and Color Flow revealed no significant aortic regurgitation. There is no significant aortic valvular stenosis. MITRAL VALVE The mitral valve is normal in structure and function. There is no evidence of mitral valve prolapse. There is no mitral valve stenosis. Doppler and Color-flow revealed trace mitral regurgitation. TRICUSPID VALVE The tricuspid valve is normal in structure and function. Doppler and Color Flow revealed trace tricus pid regurgitation. The PA pressure was estimated at 27 mmHg. There is no tricuspid valve prolapse or vegetation. There is no tricuspid valve stenosis. PULMONIC VALVE Pulmonic valve not well visualized. GREAT VESSELS The aortic root is normal in size. The ascending aorta is normal in size. The IVC is normal in size a nd collapses >50% with inspiration. PERICARDIAL EFFUSION There is no evidence of significant pericardial effusion. Critical Notification Critical Value: No <Conclusion> The left ventricular systolic function is normal and the ejection fraction is within normal range. Th e Ejection Fraction is 55-60%. There is normal LV segmental wall motion. Signed by : Hannah Araujo, Electronically Approved : 04/04/2018 11:10:59
== END | disposition home or self-care (01) ==
LOC: ECHO 09:38
PROVIDERS: ATTEND Internal Medicine Cardiovascular Disease
DX: I25.10 Atherosclerotic heart disease of native coronary artery without angina pectoris (principal)
CPT/HCPCS: 93306

== ENCOUNTER → 2019-01-06 | Outpatient (CLI) | payer MEDICARE, OTHER ==
[2018-03-04 15:06] VITALS: BP 172/83
[~2019-01-06] MED LIST changes: -GARL500C PO; +GARL500C5 PO
--- NOTE | 2019-01-06 13:13 | KCIC ---
MR of the left knee HISTORY: Left knee pain medially. TECHNIQUE: Routine multiplanar sequences are obtained. FINDINGS: Degenerative tear of the medial meniscus. No evidence of lateral meniscal tear. Anterior and posterior cruciate ligaments are intact. Mild medial collateral ligament sprain. Iliotibial band unremarkable. Fibular collateral ligament, biceps femoris tendon and popliteus tendon are intact. Extensor mechanism is intact. Small joint effusion. Trace Guerrier's cyst. Severe cartilage loss at the femoral trochlea with subchondral cystic change. Moderate chondromalacia at the patella. Moderate chondral thinning at the medial joint compartment. No bone destruction or acute fracture. IMPRESSION: 1. Medial meniscal tear. 2. DJD. Electronically signed by: Prosper Eduardo MD (01/06/2019 1:10 PM) [facility]
== END | disposition home or self-care (01) ==
LOC: KCIC MRI 10:01
PROVIDERS: ATTEND Orthopaedic Surgery
DX: S83.242A Other tear of medial meniscus, current injury, left knee, initial encounter (principal); M17.12 Unilateral primary osteoarthritis, left knee; X58.XXXA Exposure to other specified factors, initial encounter; Y93.89 Activity, other specified; Y92.89 Other specified places as the place of occurrence of the external cause; Y99.8 Other external cause status
CPT/HCPCS: 73721

== ENCOUNTER → 2019-10-13 | Outpatient (CLI) | payer MEDICARE, OTHER ==
[2018-03-04 15:06] VITALS: BP 172/83
[~2019-10-13] MED LIST changes: +GARL500C2 PO; -GARL500C5 PO
[2019-10-13 08:23] LABS: ALBUMIN 4.1 g/dL (3.4-5.0); ALBUMIN/GLOBULIN RATIO 1.5 (1.0-1.7); CALCIUM 8.8 mg/dL (8.5-10.1); CHOLESTEROL/HDL RATIO 3.7; CREATININE 1.3 mg/dL (0.7-1.3); GFR 55.1; POTASSIUM 4.4 mmol/L (3.5-5.1); TOTAL BILIRUBIN 0.6 mg/dL (0.2-1.0); TOTAL PROTEIN 6.9 g/dL (6.4-8.2)
--- NOTE | 2019-10-16 10:38 | RAD ---
MR#: [id number] Date of Study: 10/13/2019 Ordering Physician: HANNAH WESLEY, Referring Physician: DIANE PADGETT Tech: RT Alex (R) (N) APPROVED REPORT Test Type: Exercise Stress Nurse/Tech: Marsha Vang R.N. Test Indications: CAD, chest pressure 2 weeks ago Cardiac History: CAD with 7 stents, 2 TN, htn, Medications: see ehr Medical History: see ehr Resting ECG: SR with PACs Resting Heart Rate: 69 bpm Resting Blood Pressure: 123/68mmHg Pretest Chest Pain: No chest pain Nurse/Tech Notes lungs cta, heart rate irregular Consent: The procedure was explained to the patient in lay terms. Informed consent was witnessed. Santhosh eout was entered into [employer]. History and Stress Test performed by RAYNA Nails, FLAKITO (R) (N) Stress Symptoms No chest pain or symptoms. POST EXERCISE Reason for Termination: Reached target heart rate Target HR: Yes Max HR: 146 bpm 95% of Maximum Predicted HR: 153 bpm Exercise duration: 8:13 min:sec, Stage Exercise capacity: 10.0METs Max Blood Pressure: 147/67mmHg Blood Pressure response to exercise: Normal blood pressure response during stress. Heart Rate response to exercise: normal Chest Pain: No. Arrhythmia: Yes. PACs continued throughout ST Change: Yes. Significant ST depression noted in mult leads during exercise, mostly recovered to ba seline during recovery period INTERPRETATION Stress EKG Conclusion: Mild inferolateral ST segment depression suggestive but not conclusive for isc hemia. Imaging Protocol IMAGE PROTOCOL: Rest Tc-99m/stress Tc-99m 1 day Rest: Stress: Viability: Radiopharm.Tc99m RvhyvvdjwDk55c Sestamibi Dose10.7mCi 33mCi Duration 15min. 10min. Img Date 10/13/2019 10/13/2019 Inj-Img Ilnz92von. 60min. Post-Injection Exercise: 1 minute Rest Admin Site:IV - Right AntecubitalAdministrator:RAYNA Nails ARRT (R)(N) Stress Admin Site: IV - Right AntecubitalAdministrator: RAYNA Nails, ARRT (R)(N) STRESS DATA End Diast. Vol.99.0mlAv. Heart Rate74.0bpm End Syst. Vol.23.0mlCO Index BSA0.0L/min Myocardial Nhrq638.0gEject. Madraewy34.0% Stress Rates Pk. Fill Rate2.63EDV/secLVtime Pk. Fill 253.38msec Pk. Empty Rate5.64ESV/secLVtime Pk. Abxas180.90msec 05/05 Pk. Fill1.51EDV/sec Stress Scores Regional WT0.00Summed WT2.00 Regional WM0.00Summed WM0.00 The rest and stress images show normal perfusion, normal contraction and thickening. LV Perf. Quant 17 Seg. SSS0.00 17 Seg. SRS0.00 17 Seg. SDS0.00 Stress Defect Extent (% LAD)0.00Rest Defect Extent (% LAD)0.00Rev. Defect Extent (% LAD)0.00 Stress Defect Extent (% LCX) 0.00Rest Defect Extent (% LCX)0.00Rev. Defect Extent (% LCX)0.00 Stress Defect Extent (% RCA)0.00Rest Defect Extent (% RCA)0.00Rev. Defect Extent (% RCA)0.00 Stress Defect Extent (% MARIELLA)0.00Rest Defect Extent (% MARIELLA)0.00Rev. Defect Extent (% MARIELLA)0.00 Conclusion 1. Mildly abnormal EKG response at peak stress with less than [address] segment depression in the infer olateral segments. 2. Normal perfusion at stress/rest. 3. Normal LV function. EF 70% 4. Low risk study Signed by : Hannah Wesley, Electronically Approved : 10/16/2019 10:37:31
== END ==
LOC: NM 08:33
PROVIDERS: ATTEND Internal Medicine Cardiovascular Disease
DX: I25.10 Atherosclerotic heart disease of native coronary artery without angina pectoris (principal); R94.31 Abnormal electrocardiogram [ECG] [EKG]
CPT/HCPCS: 36415; 78452; 80053; 80061; 83721; 93017; A9500